=== PATIENT | male | born 1935 | race Caucasian/White ===

== ENCOUNTER → 2017-09-27 09:29 | Outpatient (CLI) | payer MEDICARE, BC, SELFPAY ==
[2017-09-27 09:44] LABS: Microscopic, Urine URINE MICROSCOPIC (MICROSCOPIC)
[2017-09-27 09:57] LABS: Appearance,Urine CLEAR (Clear); Bilirubin,Urine Negative (Negative); Blood, Urine Negative (Negative); Color,Urine YELLOW (Yellow); Glucose,Urine (UA) Negative (Negative); Ketones,Urine Negative (Negative); Leukocyte Esterase,Urine Negative (Negative); Nitrate,Urine Negative (Negative); Protein,Urine Negative (Negative); Specific Gravity, Urine 1.015 (1.005-1.030)
[2017-09-27 10:00] LABS: Basophils % 0.4 % (0.1-2.0); Eosinophils # 0.2 K/mm3 (0.0-0.4); Eosinophils % 1.8 % (0.1-12.0); Hematocrit 40.4 % (42.0-52.0); Hemoglobin 13.8 g/dL (14.1-18.0); Lymphocytes # 2.8 K/mm3 (0.7-4.5); Lymphocytes % 34.1 K/mm3 (10-50); Mean Corpuscular Hemoglobin 31.9 pg (27.0-31.2); Mean Corpuscular Volume 93.6 fl (80-94); Mean Platelet Volume 9.1 fl (7.4-10.4); Monocytes # 0.6 K/mm3 (0.1-1.0); Monocytes % 7.5 % (1.7-9.3); Neutrophils # 4.6 K/mm3 (1.8-7.8); Neutrophils % 56.1 % (37.0-80.0); Platelet Count 140 K/mm3 (142-424); Red Blood Count 4.32 M/mm3 (4.60-6.20); Red Cell Distribution Width 14.3 % (11.5-17.5); White Blood Count 8.2 K/mm3 (4.8-10.8)
[2017-09-27 10:16] LABS: Bacteria,Urine Trace /lpf; Squamous Epithelial Cell,Urine Occasional #/hpf (0-5)
[2017-09-27 10:25] LABS: Creatinine,Urine Random 110 mg/dL (20-320); Total Protein,Urine Random 11.3 mg/dL (0.0-11.9)
[2017-09-27 11:37] LABS: Albumin Level 3.6 gm/dL (3.4-5.0); Blood Urea Nitrogen 21 mg/dL (7-18); Calcium 8.7 mg/dL (8.5-10.1); Carbon Dioxide 29 mmol/L (21.0-32.0); Chloride 108 mmol/L (98-107); Estimated Glomerular Filt Rate 42 ml/min (>60); GFR (African American) 50 ML/MIN (>60); Glucose 139 mg/dL (74-106); Phosphorous 3.3 mg/dL (2.4-4.9); Sodium 145 mmol/L (136-145)
== END ==
PROVIDERS: PCP Emergency Medicine; Visit Provider Internal Medicine Nephrology
DX: N18.3 Chronic kidney disease, stage 3 (moderate) (principal)
CPT/HCPCS: 36415; 80069; 81001; 82570; 84155; 85025

== ENCOUNTER → 2017-09-30 12:59 | Outpatient (POV) | payer MEDICARE, BC, SELFPAY | PROVIDERS: Family Provider Emergency Medicine; PCP Emergency Medicine; Visit Provider Internal Medicine Nephrology | DX: Z00.00 Encounter for general adult medical examination without abnormal findings (principal) ==

== ENCOUNTER → 2018-03-17 17:04 | Outpatient (REF) | payer MEDICARE, BC, SELFPAY | LOC: LAB 17:04 | PROVIDERS: Visit Provider Podiatrist | DX: B35.1 Tinea unguium (principal) | CPT/HCPCS: 87102; 87206; 87220 ==

== ENCOUNTER → 2018-04-19 14:58 | Outpatient (CLI) | payer MEDICARE, BC, SELFPAY ==
[2018-04-19 15:23] LABS: Basophils % 0.3 % (0.1-2.0); Eosinophils # 0.2 K/mm3 (0.0-0.4); Eosinophils % 2.1 % (0.1-12.0); Hemoglobin 13.9 g/dL (14.1-18.0); Lymphocytes # 2.7 K/mm3 (0.7-4.5); Lymphocytes % 33.8 K/mm3 (10-50); Mean Corpuscular HGB Conc 34.7 g/dL (31.8-35.4); Mean Corpuscular Volume 95.2 fl (80-94); Mean Platelet Volume 8.8 fl (7.4-10.4); Monocytes # 0.4 K/mm3 (0.1-1.0); Monocytes % 5.5 % (1.7-9.3); Neutrophils # 4.7 K/mm3 (1.8-7.8); Neutrophils % 58.3 % (37.0-80.0); Platelet Count 169 K/mm3 (142-424); Red Blood Count 4.21 M/mm3 (4.60-6.20); Red Cell Distribution Width 13.6 % (11.5-17.5)
[2018-04-19 16:16] LABS: Alanine Aminotransferase 36 U/L (12-78); Albumin Level 3.8 gm/dL (3.4-5.0); Albumin/Globulin Ratio 1.2 (1.1-1.8); Alkaline Phosphatase 61 U/L (46-116); Anion Gap 11.1 mEq/L (5-15); Aspartate Amino Transferase 28 U/L (15-37); Bilirubin,Total 0.5 mg/dL (0.2-1.0); Blood Urea Nitrogen 24 mg/dL (7-18); Calcium 9.1 mg/dL (8.5-10.1); Carbon Dioxide 29 mmol/L (21.0-32.0); Chloride 105 mmol/L (98-107); Creatinine,Serum 1.77 mg/dL (0.70-1.30); Estimated Glomerular Filt Rate 37 ml/min (>60); GFR (African American) 45 ML/MIN (>60); Globulin 3.1 gm/dl (1.3-3.2); Glucose 187 mg/dL (74-106); Potassium 4.1 mmoL/L (3.5-5.1); Sodium 141 mmol/L (136-145); Total Protein,Serum 6.9 gm/dL (6.4-8.2)
== END ==
PROVIDERS: Visit Provider Internal Medicine
DX: C18.9 Malignant neoplasm of colon, unspecified (principal)
CPT/HCPCS: 36415; 80053; 85025

== ENCOUNTER → 2018-04-21 08:51 | Outpatient (CLI) | payer MEDICARE, BC, SELFPAY ==
--- NOTE | 2018-04-21 09:25 | CT_ITS ---
CT chest wo con HISTORY: Follow-up: Cancer ITS.REASON: COLON CA ORDERING PHYSICIAN: Clayton Dinh MD PATIENT AGE: 82 years COMPARISON: 04/15/2017 Technique: Axial images obtained with sagittal and coronal reformats. All CT scans at the facility use one or more dose reduction, viz: automated exposure control, ma/kV adjustment per patient size (including targeted exams where dose is matched to indication, i.e. head), or iterative reconstruction technique. 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 No mediastinal or hilar mass evident. Normal heart size without evidence of pericardial effusion. There is evidence of old granulomatous disease with chronic changes. No suspicious pulmonary nodules, infiltrates, or effusions. No bony destructive process. IMPRESSION: Stable CT appearance of the chest with no convincing evidence of metastatic disease.
--- NOTE | 2018-04-21 09:25 | CT_ITS ---
CT abdomen pelvis wo con CLINICAL INDICATION: Follow-up: Cancer ITS.REASON: COLON CA ORDERING PHYSICIAN: Clayton Dinh MD PATIENT AGE: 82 years COMPARISON: 04/15/2017 TECHNIQUE: Axial images obtained with sagittal and coronal reformats. All CT scans at the facility use one or more dose reduction, viz: automated exposure control, ma/kV adjustment per patient size (including targeted exams where dose is matched to indication, i.e. head), or iterative reconstruction technique. IV contrast was not given due to patient's renal status and due to the fact patient has only one kidney PROCEDURE: Oral Contrast: Redicat IV Contrast: None . FINDINGS: There remains a 1 cm isodensity in the hepatic dome centrally unchanged and may represent a hepatic cyst. There has been a prior cholecystectomy. Spleen and adrenal glands have an unremarkable appearance. The pancreas also appears unremarkable on this unenhanced exam. 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 The right renal bed is unremarkable. There are nonobstructing punctate calculi in the lower pole the left kidney with at least 2 stones present measuring 2 and 3 mm. No hydronephrosis. No ureteral calculi. There has been a prior right hemicolectomy. There is a nodular soft tissue density at the anastomosis with the large and small bowel in the right mid abdominal region. This may only represent a postsurgical finding habitus somewhat similar but less apparent appearance on 04/15/2017 and on older exam of 05/20/2015. This area measures approximately 3 cm previously measuring 2 cm. No pelvic mass or abnormal fluid collection or focal inflammatory change of the pelvis. No bony destructive process. There are degenerative changes in the lumbar spine. IMPRESSION: 1. No convincing evidence of metastatic disease. 2. Slight increase in soft tissue prominence in the right mid abdominal region just posterior to the small and large bowel anastomosis. This may only be due to postsurgical changes or even scarring. Recurrent neoplasm at this site cannot totally be excluded. Consider 6 month follow-up to confirm short-term stability as this area appears slightly more prominent compared to multiple previous exam
== END ==
PROVIDERS: Family Provider Emergency Medicine; PCP Emergency Medicine; Visit Provider Internal Medicine
DX: Z03.89 Encounter for observation for other suspected diseases and conditions ruled out (principal); C18.9 Malignant neoplasm of colon, unspecified
CPT/HCPCS: 71250; 74176

== ENCOUNTER → 2018-10-28 14:31 | Outpatient (CLI) | payer MEDICARE, BC, SELFPAY ==
[2018-10-28 14:45] LABS: Microscopic, Urine URINE MICROSCOPIC (MICROSCOPIC)
[2018-10-28 15:12] LABS: Appearance,Urine CLEAR (Clear); Bilirubin,Urine Negative (Negative); Blood, Urine Negative (Negative); Color,Urine YELLOW (Yellow); Glucose,Urine (UA) Negative (Negative); Ketones,Urine Negative (Negative); Leukocyte Esterase,Urine Negative (Negative); Nitrate,Urine Negative (Negative); Protein,Urine Negative (Negative); Urobilinogen,Urine 0.2 EU/dl (0.2)
[2018-10-28 15:38] LABS: Basophils % 0.6 % (0.1-2.0); Eosinophils # 0.2 K/mm3 (0.0-0.4); Eosinophils % 2.6 % (0.1-12.0); Hematocrit 40.2 % (42.0-52.0); Hemoglobin 14.1 g/dL (14.1-18.0); Lymphocytes # 2.6 K/mm3 (0.7-4.5); Lymphocytes % 35.4 % (10-50); Mean Corpuscular HGB Conc 35.1 g/dL (31.8-35.4); Mean Corpuscular Hemoglobin 32.5 pg (27.0-31.2); Mean Corpuscular Volume 92.7 fl (80-94); Mean Platelet Volume 8.6 fl (7.4-10.4); Monocytes # 0.5 K/mm3 (0.1-1.0); Monocytes % 6.6 % (1.7-9.3); Neutrophils # 4.1 K/mm3 (1.8-7.8); Neutrophils % 54.8 % (37.0-80.0); Platelet Count 146 K/mm3 (142-424); Red Blood Count 4.33 M/mm3 (4.60-6.20); Red Cell Distribution Width 13.9 % (11.5-17.5); White Blood Count 7.4 K/mm3 (4.8-10.8)
[2018-10-28 15:50] LABS: Creatinine,Urine Random 27 mg/dL (20-320)
[2018-10-28 15:56] LABS: Total Protein,Urine Random 3.1 mg/dL (0.0-11.9)
[2018-10-28 16:12] LABS: Albumin Level 3.8 gm/dL (3.4-5.0); Anion Gap 12.9 mEq/L (5-15); Blood Urea Nitrogen 22 mg/dL (7-18); Calcium 9.4 mg/dL (8.5-10.1); Carbon Dioxide 27 mmol/L (21.0-32.0); Chloride 103 mmol/L (98-107); Estimated Glomerular Filt Rate 45 ml/min (>60); GFR (African American) 54 ML/MIN (>60); Glucose 138 mg/dL (74-106); Phosphorous 3.7 mg/dL (2.4-4.9); Potassium 3.9 mmoL/L (3.5-5.1); Sodium 139 mmol/L (136-145); Uric Acid 4.4 mg/dL (2.6-7.2)
[2018-10-28 16:26] LABS: Squamous Epithelial Cell,Urine Occasional #/hpf (0-5)
[2018-10-31 13:25] LABS: Calcium, Ionized 5.4 mg/dL (4.5-5.6); Microalbumin, Urine 7.2 ug/mL (Not Estab.)
[2018-10-31 13:26] LABS: Vitamin D 25 Hydroxy 47.6 ng/mL (30.0-100.0)
[2018-10-31 16:45] LABS: Parathyroid Hormone Intact 20 pg/mL (15-65)
== END ==
PROVIDERS: Visit Provider Internal Medicine Nephrology
DX: N18.3 Chronic kidney disease, stage 3 (moderate) (principal)
CPT/HCPCS: 36415; 80069; 81001; 82043; 82330; 82570; 82652; 83970; 84155; 84550; 85025

== ENCOUNTER → 2018-11-03 14:02 | Outpatient (POV) | payer MEDICARE, BC, SELFPAY | PROVIDERS: Visit Provider Internal Medicine Nephrology | DX: Z00.00 Encounter for general adult medical examination without abnormal findings (principal) ==

== ENCOUNTER → 2019-01-11 10:54 | Outpatient (CLI) | payer MEDICARE, BC, SELFPAY ==
--- NOTE | 2019-01-11 11:01 | XR_ITS ---
XR shoulder RT min 2V HISTORY: ITS.REASON: right shoulder pain ORDERING PHYSICIAN: Diogenes Og MD PATIENT AGE: 83 years Comparison: None FINDINGS: No fracture or dislocation. No lytic or blastic change. There is normal mineralization. There is minimal superior displacement of the distal clavicle and minimal periarticular calcification superiorly. Mild osteoarthritis is present at the glenohumeral joint. No fracture or dislocation. No significant subacromial stenosis. IMPRESSION: Mild osteoarthritis of the glenohumeral joint with minimal superior displacement of the distal clavicle which is age indeterminant
== END ==
PROVIDERS: PCP Emergency Medicine; Visit Provider Emergency Medicine
DX: M25.511 Pain in right shoulder (principal)
CPT/HCPCS: 73030

== ENCOUNTER → 2019-01-13 10:02 | Outpatient (CLI) | payer MEDICARE, BC, SELFPAY ==
--- NOTE | 2019-01-13 10:06 | MR_ITS ---
MR shoulder RT wo con COMPARISON: 01/11/2019 HISTORY: Right shoulder pain with limited range of motion ORDERING PHYSICIAN: Diogenes Og MD PATIENT AGE: 83 years TECHNIQUE: Multiplanar multiecho sequences are performed without contrast. FINDINGS: There is acromioclavicular arthropathy with mild hypertrophic change of the AC joint. There is thickening of the supraspinatus tendon with increased T2 signal distally consistent with tendinopathy/tendinosis. There is irregularity of the undersurface of the supraspinatus tendon with discontinuity of the deep fibers consistent with a partial tear. A full-thickness or complete tear is not identified. The infraspinatus tendon shows mild thickening distally consistent with tendinopathy/tendinosis. The subscapularis and teres minor tendons are unremarkable. No obvious labral tear. The bicipital tendon is in place. There is fluid around the bicipital tendon sheath. There is increased T2 signal in the subcutaneous tissues along the anterior aspect of the shoulder which could be due to posttraumatic inflammatory or infectious changes. Small amount fluid is present in the subcoracoid region. IMPRESSION: 1. Tendinopathy/tendinosis of the supraspinatus and infraspinatus tendons with partial tear along the undersurface of the supraspinatus tendon. A complete tear with muscle or tendinous retraction is not identified 2. Tenosynovitis of the bicipital tendon sheath 3. Subcoracoid bursitis. 4. Soft tissue edema along the anterior aspect of the shoulder
== END ==
PROVIDERS: PCP Emergency Medicine; Visit Provider Emergency Medicine
DX: M25.511 Pain in right shoulder (principal)
CPT/HCPCS: 73221

== ENCOUNTER → 2019-01-18 14:30 | Outpatient (CLI) | payer MEDICARE, BC, SELFPAY ==
[2019-01-18 14:49] LABS: Anion Gap 13.6 mEq/L (5-15); Blood Urea Nitrogen 24 mg/dL (7-18); Carbon Dioxide 25 mmol/L (21.0-32.0); Chloride 101 mmol/L (98-107); Creatinine,Serum 1.87 mg/dL (0.70-1.30); Estimated Glomerular Filt Rate 35 ml/min (>60); GFR (African American) 42 ML/MIN (>60); Glucose 93 mg/dL (74-106); Potassium 4.6 mmoL/L (3.5-5.1); Sodium 135 mmol/L (136-145)
--- NOTE | 2019-01-18 14:51 | MR_ITS ---
MR head/brain wo con HISTORY: Unable to move the right arm. History of colon cancer ITS.REASON: hemiparesis ORDERING PHYSICIAN: Nan Chowdhury MD PATIENT AGE: 83 years Comparison: None TECHNIQUE: Standard multiplanar multiecho sequences are performed without contrast. FINDINGS: No midline shift, mass effect, intracranial hemorrhage, or hydrocephalus is evident. No evidence of acute infarction. There is generalized atrophy with moderate periventricular and subcortical T2 white matter hyperintensities consistent with ischemic gliotic change from microvascular disease. No space occupying lesions are evident. No intra or extra-axial hemorrhage. The cerebellopontine angles, cerebellum, and brainstem are unremarkable. No large aneurysm. There is mild mucosal thickening of the maxillary sinus on the right and minimal fluid signal intensity in the mastoid sinuses. IMPRESSION: 1. No acute intracranial findings. 2. Atrophy with chronic periventricular ischemic gliotic change
== END ==
PROVIDERS: Visit Provider Orthopaedic Surgery
DX: G81.90 Hemiplegia, unspecified affecting unspecified side (principal)
CPT/HCPCS: 36415; 70551; 80048

== ENCOUNTER → 2019-01-19 10:44 | Outpatient (CLI) | payer MEDICARE, BC, SELFPAY ==
--- NOTE | 2019-01-19 10:46 | MR_ITS ---
MR chest wo/w con CLINICAL INDICATION: Right upper extremity weakness with limited range of motion, history of colon cancer and renal cancer ITS.REASON: right brachial plexus ORDERING PHYSICIAN: Nan Chowdhury MD PATIENT AGE: 83 years Comparison: None TECHNIQUE: Routine multiplanar multiecho sequences are performed without and with contrast of the upper chest with attention to the brachial plexus FINDINGS: There is mild degree of motion artifact which does obscure fine detail. No enhancing masses are apparent. No abnormal fluid collections. No supraclavicular or infraclavicular lesions apparent. No enhancing lesions evident. IMPRESSION: Unremarkable MRI of brachial plexus
--- NOTE | 2019-01-19 10:46 | MR_ITS ---
MR cervical spine wo/w con HISTORY: Right arm hemiparalysis/hemiparesis, inability to raise right arm and flex right elbow ITS.REASON: neck/shoulder pain ORDERING PHYSICIAN: Nan Chowdhury MD PATIENT AGE: 83 years Comparison: None TECHNIQUE: Standard multiplanar multiecho sequences are performed without and with gadolinium enhancement contrast. 3-D MIP and myelographic images are also rendered and reviewed FINDINGS: There is normal alignment. The craniocervical junction has an unremarkable appearance. C2-C3: Mild right-sided foraminal narrowing from uncovertebral hypertrophy. C3-C4: Mild disc disease with moderate bilateral foraminal narrowing from uncovertebral hypertrophy. There is a small disc osteophyte complex in the right uncovertebral region with severe right-sided foraminal narrowing. The canal is narrowed at this level at 10 mm with minimal bulging of the disc without cord flattening. C4-C5: Degenerative disc disease with bulging disc along with uncovertebral and facet hypertrophy. There is canal stenosis at 9 mm. There is severe left lateral recess narrowing and moderate to severe bilateral foraminal narrowing. The bulging disc abuts the anterior aspect of the cord without contour deformity. C5-C6: Degenerative disc disease with bulging disc along facet and ligamentum flavum hypertrophy with moderate bilateral foraminal narrowing. C6-C7: Degenerative disc disease with bulging disc slightly eccentric toward the left. The canal is narrowed at 10 mm. C7-T1: Minimal anterolisthesis of C7 of approximately 3 mm. There is degenerative disc disease in the upper thoracic spine. No obstructive lesions. No abnormal enhancement. No evidence of metastatic disease. IMPRESSION: 1. No evidence of metastatic disease. 2. Multilevel cervical spondylosis with degenerative disc disease, bulging disc, facet and uncovertebral hypertrophy with lateral recess and foraminal narrowing and canal stenosis. Please see above for detailed description at each level. No disc herniation
== END ==
PROVIDERS: PCP Emergency Medicine; Visit Provider Orthopaedic Surgery
DX: G81.90 Hemiplegia, unspecified affecting unspecified side (principal); M54.2 Cervicalgia
CPT/HCPCS: 71552; 72156; 76376; A9576

== ENCOUNTER → 2019-03-22 12:36 | Outpatient (CLI) | payer MEDICARE, BC, SELFPAY ==
[2019-03-22 14:54] LABS: Free T4 (Free Thyroxine) 0.98 ng/dl (0.76-1.46); Thyroid Stimulating Hormone 2.28 uIU/ml (0.358-3.740)
[2019-03-22 15:01] LABS: Hemoglobin A1C 6.7 % (0.0-7.0)
[2019-03-22 15:11] LABS: Erythrocyte Sedimentation Rate 28 mm/hr (0-20)
[2019-03-23 08:22] LABS: Folate >20.0 ng/mL (>3.0); Vitamin B12 418 pg/mL (232-1245)
[2019-03-23 08:23] LABS: RA Latex Turbid. <10.0 IU/mL (0.0-13.9)
[2019-03-23 10:10] LABS: Sjogren's Anti-SS-A <0.2 AI (0.0-0.9)
[2019-03-23 14:07] LABS: Sjogren's Anti-SS-B <0.2 AI (0.0-0.9)
[2019-03-23 15:09] LABS: Albumin 3.7 g/dL (2.9-4.4); Alpha-1-Globulin 0.2 g/dL (0.0-0.4); Alpha-2-Globulin 0.7 g/dL (0.4-1.0); Protein, Total 6.5 g/dL (6.0-8.5)
[2019-03-24 15:01] LABS: Treponema pallidum Ab (FTA-ABS Non Reactive (Non Reactive)
[2019-03-24 15:02] LABS: Angiotensin Converting Enzyme <15 U/L (14-82); Antinuclear Antibodies, IFA Positive (.)
[2019-03-31 18:12] LABS: Miscellaneous Test SEE BELOW:
== END ==
PROVIDERS: Visit Provider Psychiatry & Neurology Neurology
DX: Z79.899 Other long term (current) drug therapy (principal); G60.3 Idiopathic progressive neuropathy
CPT/HCPCS: 36415; 82164; 82607; 82746; 83036; 84155; 84165; 84439; 84443; 85651; 86038; 86235; 86334; 86431; 86618; 86780

== ENCOUNTER → 2019-07-19 11:57 | Outpatient (CLI) | payer MEDICARE, BC, SELFPAY | PROVIDERS: Visit Provider Psychiatry & Neurology Neurology | DX: G60.3 Idiopathic progressive neuropathy (principal) | CPT/HCPCS: 36415 ==

== ENCOUNTER → 2019-07-20 13:42 | Outpatient (CLI) | payer MEDICARE, BC, SELFPAY ==
[2019-07-20 14:03] LABS: Basophils % 0.4 % (0.1-2.0); Eosinophils # 0.1 K/mm3 (0.0-0.4); Eosinophils % 1.9 % (0.1-12.0); Hemoglobin 12.5 g/dL (14.1-18.0); Lymphocytes # 2.1 K/mm3 (0.7-4.5); Lymphocytes % 30.3 % (10-50); Mean Corpuscular HGB Conc 32.1 g/dL (31.8-35.4); Mean Corpuscular Hemoglobin 31.4 pg (27.0-31.2); Mean Corpuscular Volume 97.9 fl (80-94); Mean Platelet Volume 9.9 fl (7.4-10.4); Monocytes # 0.6 K/mm3 (0.1-1.0); Monocytes % 8.4 % (1.7-9.3); Neutrophils # 4.1 K/mm3 (1.8-7.8); Platelet Count 192 K/mm3 (142-424); Red Blood Count 3.98 M/mm3 (4.60-6.20); Red Cell Distribution Width 14.4 % (11.5-17.5)
[2019-07-20 14:35] LABS: Alanine Aminotransferase 25 U/L (12-78); Albumin Level 3.7 gm/dL (3.4-5.0); Albumin/Globulin Ratio 1.1 (1.1-1.8); Alkaline Phosphatase 50 U/L (46-116); Anion Gap 12.5 mEq/L (5-15); Aspartate Amino Transferase 27 U/L (15-37); Bilirubin,Total 0.6 mg/dL (0.2-1.0); Blood Urea Nitrogen 20 mg/dL (7-18); Calcium 8.8 mg/dL (8.5-10.1); Carbon Dioxide 27 mmol/L (21.0-32.0); Chloride 102 mmol/L (98-107); Chol/HDL Ratio 2.9 (1-3.5); Cholesterol 80 mg/dL (140-200); Creatinine,Serum 1.38 mg/dL (0.70-1.30); Estimated Glomerular Filt Rate 49 ml/min (>60); Free T4 (Free Thyroxine) 1.04 ng/dl (0.76-1.46); GFR (African American) 60 ML/MIN (>60); Globulin 3.4 gm/dl (1.3-3.2); Glucose 155 mg/dL (74-106); HDL Cholesterol 28 mg/dL (27-67); LDL Cholesterol 26 mg/dL (0-130); Potassium 4.5 mmoL/L (3.5-5.1); Sodium 137 mmol/L (136-145); Total Protein,Serum 7.1 gm/dL (6.4-8.2); Triglycerides 130 mg/dL (30-200); VLDL Cholesterol 26 mg/dL (0-40)
[2019-07-21 09:18] LABS: Vitamin D 25 Hydroxy 48.8 ng/mL (30.0-100.0)
[2019-07-21 19:02] LABS: Hemoglobin A1C 7.1 % (0.0-7.0)
== END ==
PROVIDERS: Visit Provider Nurse Practitioner Family
DX: E11.9 Type 2 diabetes mellitus without complications (principal); E78.5 Hyperlipidemia, unspecified; Z79.4 Long term (current) use of insulin
CPT/HCPCS: 80053; 80061; 82652; 83036; 84439; 84443; 85025

== ENCOUNTER 2019-08-11 15:49 | Inpatient (IN) ==
--- NOTE | 2019-08-11 16:11 | Emergency Department Note ---
ED Disposition Condition on Discharge: Fair Time of Disposition: 19:56 - Critical Care Critical Care Time: No <Sergio Palmer - Last Filed: 08/11/19 19:50> <Diogenes Og - Last Filed: 08/11/19 22:21> Clinical Impression: Partial small bowel obstruction, SBO (small bowel obstruction), Renal insufficiency, Diabetes 1.5, managed as type 2, Abdominal lymphadenopathy Abdominal pain Qualifiers: Abdominal location: lower abdomen, unspecified Qualified Code(s): R10.30 - Lower abdominal pain, unspecified Disposition: Admitted As Inpatient Additional Instructions: Endorsed to Dr. Og at end of shift pending results of CT abdomen pelvis with oral and IV contrast Referrals: Diogenes Og MD [Primary Care Provider] - Attestation: On 08/11/19, the high probability of a clinically significant, sudden or life threatening deterioration of the following system(s) required my full and direct attention, intervention and personal management. The time I documented below is in addition to time spent performing reported procedures but includes the following listed in this critical care notation. Medical Decision Making - Medical Records Medical records reviewed: Yes: I reviewed the patient's medical records. - Rosas Inquiry Pt receiving controlled substance: Yes Rosas was queried for this patient: Yes (No scheduled drugs on report) Reference #:: [id number] Risks and benefits of using a controlled substance: were not discussed with pt by me - Lab Data Lab results reviewed: Yes: I reviewed the patient's lab results. Result diagrams: 08/11/19 16:32 08/11/19 16:32 - Radiology Data #1 Image(s): Abdomen Image Reviewed: Yes I reviewed the patient's radiology results, Yes I reviewed the patient's radiology image, Yes I have reviewed radiologist's interpretation - CT Data CT Scan: Abdomen, Pelvis Time Received: 19:[address] Reviewed: Yes: I have viewed the radiologist's interpretation <Sergio Palmer - Last Filed: 08/11/19 19:50> - Lab Data Result diagrams: 08/11/19 16:32 08/11/19 16:32 - CT Data Preliminary Findings: Abnormal (sbo/enlaarged lymph nodes ) - Physician Consults Physician Consulted: blanca Reason -: Pt condition <Diogenes Og - Last Filed: 08/11/19 22:21> Vital Signs: 08/11/19 15:56 08/11/19 18:38 08/11/19 21:19 Temperature 98.1 F Temperature Source Oral Pulse Rate [Left Radial] 66 60 58 L Respiratory Rate 16 20 Blood Pressure [Right Arm] 155/113 H 153/70 H 162/66 H Blood Pressure Mean [Right Arm] 127 97 98 Blood Pressure Source [Right Arm] Automatic Cuff Blood Pressure Position [Right Arm] Sitting Sitting 02 Sat by Pulse Oximetry 98 95 96 Oxygen Delivery Method Room Air Room Air - Lab Data Lab Results 08/11/19 16:32: WBC 6.2, RBC 3.97 L, Hgb 12.2 L, Hct 36.8 L, MCV 92.7, MCH 30.9, MCHC 33.3, RDW 13.9, Plt Count 173, MPV 9.6, Neut % (Auto) 51.4, Lymph % (Auto) 38.9, Jewell % (Auto) 8.7, Eos % (Auto) 0.7, Baso % (Auto) 0.3, Neut # (Auto) 3.2, Lymph # (Auto) 2.4, Jewell # (Auto) 0.5, Eos # (Auto) 0.0, Baso # (Auto) 0.0 08/11/19 16:32: Sodium 136, Potassium 4.2, Chloride 102, Carbon Dioxide 24, Anion Gap 14.2, BUN 24 H, Creatinine 1.53 H, Estimated Creat Clear 61, Estimated GFR 44 L, Est GFR ( Amer) 53 L, Glucose 74, Calcium 8.4 L, Total Bilirubin 0.5, AST 39 H, ALT 27, Alkaline Phosphatase 39 L, Total Protein 7.8, Albumin 2.8 L, Globulin 5.0 H, Albumin/Globulin Ratio 0.6 L, Amylase 32 08/11/19 16:32: Lipase 91 08/11/19 16:32: ESR 93 H 08/11/19 16:32: C-Reactive Protein 2.3 H 08/11/19 18:35: Urine Color Yellow, Urine Appearance Clear, Urine pH 6.0, Ur Specific Alexander 1.020, Urine Protein Negative, Urine Glucose (UA) Negative, Urine Ketones Negative, Urine Blood Negative, Urine Nitrate Negative, Urine Bilirubin Negative, Urine Urobilinogen 0.2, Ur Leukocyte Esterase Negative, Ur Squamous Epith Cells Occasional, Amorphous Sediment Trace Orders (Tests/Meds): ED MEDICATIONS Generic Name Dose Route Start Last Admin Trade Name Freq PRN Reason Stop Dose Admin Sodium Chloride 1,000 mls @ 999 mls/hr 08/11/19 21:15 08/11/19 21:10 Sod Chlor 0.9% 1000ml Bag IV 08/11/19 22:15 999 mls/hr .Q1H1M JHON Administration Discontinued Medications Generic Name Dose Route Start Last Admin Trade Name Freq PRN Reason Stop Dose Admin Diatrizoate Meglum/Diatrizoate Sod 30 ml 08/11/19 19:03 08/11/19 19:09 Gastrografin 66%-10% 30ml PO 08/11/19 19:04 30 ml ONCE ONE Administration Morphine Sulfate 2 mg 08/11/19 19:08 08/11/19 19:24 Morphine 4mg/Ml Syringe IV 08/11/19 19:09 2 mg ONCE ONE Administration Ondansetron HCl 4 mg 08/11/19 19:08 08/11/19 19:24 Zofran 4mg/2ml Vial IV 08/11/19 19:09 4 mg ONCE ONE Administration ORDERS Category Date Time Status CT abdomen pelvis w con Stat Cat Scan 08/11/19 18:22 Taken Diarrhea 23 Panel, PCR Stat Lab 08/11/19 16:11 Ordered - Radiology Data #1 IMPRESSION: Suspect partial small bowel obstruction. This may be confirmed with CT abdomen and pelvis with IV and oral contrast Small right pleural effusion (Sergio Palmer) - CT Data Findings Narrative: Results will be reviewed by Dr. Og (Sergio Palmer) Abdominal Pain HPI - General Mode of Arrival: Ambulatory Source of Information: Patient, Spouse - History of Present Illness MD complaint: abdominal pain Onset (ago): week(s) Consistency: intermittent Location: suprapubic Severity: moderate <Sergio Palmer - Last Filed: 08/11/19 19:50> - General Limitations: No Limitations - History of Present Illness Quality: cramping Radiation: epigastric Associated symptoms: denies other symptoms <Diogenes Og - Last Filed: 08/11/19 22:21> - General Stated Complaint: Abdominal Pain Time Seen by Provider: 08/11/19 16:00 - History of Present Illness HPI narrative: Patient is an 84-year-old white male who comes in with complaints of abdominal pain vomiting and diarrhea this been going on for the past 3 weeks since he had a flu shot at Dr. Og's office he says that his stools have been black but today his stools have been cream-colored (Sergio Palmer) - Related Data Home Medications Medication Instructions Recorded Confirmed esomeprazole magnesium 40 mg 40 mg PO DAILY cap 10/25/17 08/11/19 capsule,delayed release hydrochlorothiazide 25 mg tablet 25 mg PO ONCE 10/25/17 08/11/19 meloxicam 15 mg tablet 15 mg PO DAILY tab 10/25/17 08/11/19 aspirin 81 mg tablet,delayed 81 mg PO ONCE 03/17/18 08/11/19 release cholecalciferol (vitamin D3) 3,000 1,000 unit PO ONCE tab 03/17/18 08/11/19 unit tablet insulin aspar prot-insulin aspart 30 unit SQ BID ml 01/11/19 08/11/19 100 unit/mL (70-30) subcutaneous pen vit B6 25 mg-met.hydrofolate 3.75 1 cap PO DAILY cap 07/20/19 08/11/19 mg-mecobalamin 1mg-ALA 300mg capsule Amlodipine Besylate [Amlodipine 10 mg PO DAILY 08/11/19 08/11/19 10mg Tab] Atorvastatin Calcium [Atorvastatin 40 mg PO DAILY 08/11/19 08/11/19 40mg Tab] Desloratadine 5 mg PO DAILY 08/11/19 08/11/19 Fenofibrate Nanocrystallized 145 mg PO DAILY 08/11/19 08/11/19 [Fenofibrate] Furosemide [Furosemide 20mg Tab] 20 mg PO DAILY 08/11/19 08/11/19 Insulin NPH Hum/Reg Insulin Hm See Rx Instructions .ROUTE .COMPLEX 08/11/19 08/11/19 [Humulin 70/30 Kwikpen] Metoprolol Succinate See Rx Instructions .ROUTE .COMPLEX 08/11/19 08/11/19 Pen Needle, Diabetic [Easy Touch 1 units .ROUTE .MEDSUPPLY 08/11/19 08/11/19 Pen Needle] lisinopriL [Lisinopril 20mg Tab] See Rx Instructions .ROUTE .COMPLEX 08/11/19 08/11/19 Allergies Allergy/AdvReac Type Severity Reaction Status Date / Time No Known Allergies Allergy Verified 08/11/19 15:12 [facility] History I have reviewed the patient's past medical history: Yes Medical History: Reports:: Cancer, Diabetes Mellitus Type 2, Hyperlipidemia, Hypertension, Myocardial Infarction, Renal Insufficiency Other Medical History: Reports: Arthritis, Other (He has had 2 operations for colon cancer one kidney removed for cancer) Other Surgeries: Yes: Appendectomy, Cancer Surgery, Cardiac Surgery, Colon Resection Amputation: No Fractures: No - Social History Smoking Status: Never smoker Alcohol Intake: never Alcohol Intake Frequency:: other Substance Use Type: denies use Occupational Status: retired Housing: house Household Members: spouse Family Hx:: No significant family history <Sergio Palmer - Last Filed: 08/11/19 19:50> - Hepatitis A Screen Attestation statement:: This patient has been screened for Hepatitis A risk factors. ROS Obtained: Yes All systems reviewed & no additional complaints, Yes Systems reviewed as appropriate & no additional complaints - Constitutional Constitutional: Reports system reviewed and no additional complaints, except as docu, Reports as per HPI - Gastrointestinal Gastrointestingal: Reports: system reviewed and no additional complaints, except as docu, as per HPI, abdominal pain, bloating, cramping, diarrhea, vomiting <Sergio Palmer - Last Filed: 08/11/19 19:50> - Eyes Eyes: Denies change in vision - ENT Ears, Nose, Mouth, and Throat: Denies throat swelling - Cardiovascular Cardiovascular: Denies chest pain - Respiratory Respiratory: No cough - Genitourinary Male Genitourinary: Denies hematuria - Musculoskeletal Musculoskeletal: Denies joint pain, Denies joint swelling - Integumentary/Breasts Skin/Breast: Denies rash - Neurologic Neurologic: Denies focal weakness, Denies seizure-like activity <Diogenes Og - Last Filed: 08/11/19 22:21> Physical Exam - General General appearance: alert, in no apparent distress - Head Head exam: atraumatic - Eye Eye exam: Present: normal appearance - ENT ENT exam: Present: normal exam - Neck Neck exam: Present: normal inspection - Chest Chest inspection: Present: normal inspection - Respiratory Respiratory exam: Present: normal lung sounds bilaterally, respiratory distress - Cardiovascular Cardiovascular exam: Present: regular rate - Abdominal Exam Abdominal exam: Present: soft, tenderness (In the suprapubic area but he has good bowel sounds and and mild abdominal distention) - Extremities Exam Extremities exam: Present: normal inspection - Neurological Exam Neurological exam: Present: alert, oriented X3 - Psychiatric Psychiatric exam: Present: normal affect, normal mood <Sergio Palmer - Last Filed: 08/11/19 19:50> - Abdominal Exam Abdominal exam: Present: distention, diminished bowel sounds Abdominal tenderness: Present: epigastrium, moderate <Diogenes Og - Last Filed: 08/11/19 22:21>
[2019-08-11 16:40] LABS: Basophils % 0.3 % (0.1-2.0); Eosinophils % 0.7 % (0.1-12.0); Hematocrit 36.8 % (42.0-52.0); Hemoglobin 12.2 g/dL (14.1-18.0); Lymphocytes # 2.4 K/mm3 (0.7-4.5); Lymphocytes % 38.9 % (10-50); Mean Corpuscular HGB Conc 33.3 g/dL (31.8-35.4); Mean Corpuscular Volume 92.7 fl (80-94); Mean Platelet Volume 9.6 fl (7.4-10.4); Monocytes # 0.5 K/mm3 (0.1-1.0); Monocytes % 8.7 % (1.7-9.3); Neutrophils # 3.2 K/mm3 (1.8-7.8); Neutrophils % 51.4 % (37.0-80.0); Platelet Count 173 K/mm3 (142-424); Red Blood Count 3.97 M/mm3 (4.60-6.20); Red Cell Distribution Width 13.9 % (11.5-17.5); White Blood Count 6.2 K/mm3 (4.8-10.8)
[2019-08-11 16:57] LABS: Albumin Level 2.8 gm/dL (3.4-5.0); Albumin/Globulin Ratio 0.6 (1.1-1.8); Anion Gap 14.2 mEq/L (5-15); Bilirubin,Total 0.5 mg/dL (0.2-1.0); Calcium 8.4 mg/dL (8.5-10.1); Total Protein,Serum 7.8 gm/dL (6.4-8.2)
[2019-08-11 19:46] LABS: Microscopic, Urine URINE MICROSCOPIC (MICROSCOPIC)
[2019-08-11 19:49] LABS: Appearance,Urine CLEAR (Clear); Bilirubin,Urine Negative (Negative); Blood, Urine Negative (Negative); Color,Urine YELLOW (Yellow); Glucose,Urine (UA) Negative (Negative); Ketones,Urine Negative (Negative); Leukocyte Esterase,Urine Negative (Negative); Protein,Urine Negative (Negative); Urobilinogen,Urine 0.2 EU/dl (0.2)
[2019-08-11 19:53] LABS: Amorphous Sediment,Urine Trace /lpf; Squamous Epithelial Cell,Urine Occasional #/hpf (0-5)
[2019-08-12 06:29] LABS: Anion Gap 14.6 mEq/L (5-15); Calcium 7.9 mg/dL (8.5-10.1)
[2019-08-12 07:14] LABS: Basophils % 0.5 % (0.1-2.0); Eosinophils % 0.9 % (0.1-12.0); Hematocrit 36.7 % (42.0-52.0); Hemoglobin 11.6 g/dL (14.1-18.0); Lymphocytes % 34.1 % (10-50); Mean Corpuscular HGB Conc 31.8 g/dL (31.8-35.4); Mean Corpuscular Volume 93.8 fl (80-94); Mean Platelet Volume 9.3 fl (7.4-10.4); Monocytes % 11.4 % (1.7-9.3); Neutrophils % 53.2 % (37.0-80.0); Platelet Count 152 K/mm3 (142-424); Red Blood Count 3.91 M/mm3 (4.60-6.20); Red Cell Distribution Width 14.9 % (11.5-17.5); White Blood Count 4.7 K/mm3 (4.8-10.8)
[2019-08-12 07:15] LABS: Lymphocytes # 1.6 K/mm3 (0.7-4.5); Monocytes # 0.5 K/mm3 (0.1-1.0); Neutrophils # 2.5 K/mm3 (1.8-7.8)
--- NOTE | 2019-08-12 07:38 | Consult Report ---
*Admission Date: 08/11/19 *Reason for consult:: Small bowel obstruction. *History of present illness: Mr. Gramajo is an 84-year-old male admitted to [facility] for complaints of nausea and emesis for approximately 48 hours. Initial evaluation included CT A/P; findings suggestive of small bowel obstruction with visible transition point. Admitted for bowel rest. Nasogastric tube placed. A pproximately 600 mLs evacuated. This morning, patient reports no further nausea or emesis since admission. Small amount of flatus and bowel movement noted. No fever or chills. Clinically improved. Past medical history is significant for colon cancer for which he has undergone colon resection. Patient reports that he has had 2 operations for colon cancer in the past; this is not verified due to the lack of records available. Review of CT imaging demonstrates staple line in the left colon consistent with left colectomy. Index operation over 5 years ago. No evident disease during the 5-year surveillance period. He has been followed by Dr. Fredo Dinh in the past. Required Xeloda. Review of Systems - Review of Systems Review of systems:: pertinent systems reviewed and negative unless documented below - Constitutional Reports fatigue - *Gastrointestinal Reports abdominal pain, Reports bloating, Reports nausea - *Neurologic Denies localized weakness, Denies seizure-like activity [facility] History Medical History: Reports:: Cancer (colon), Diabetes Mellitus Type 2, Hyperlipidemia, Hypertension, Myocardial Infarction, Renal Insufficiency *Have you ever received a pneumonia vaccine?: Yes *Have you received a flu vaccine this season?: Yes Other Medical History: Reports: Arthritis, Chemotherapy, Radiation Therapy, Other (He has had 2 operations for colon cancer one kidney removed for cancer) Other Surgeries: Yes: Appendectomy, Cancer Surgery, Cardiac Surgery, Colon Resection Amputation: No Fractures: No - *Social History Educational Level: Attended Grade School Smoking Status: Never smoker Alcohol Intake: never Alcohol Intake Frequency:: other Substance Use Type: denies use *Occupational Status:: retired Housing: house Household Members: spouse *Travel in the last 8 weeks: None Family Hx:: No significant family history, Heart Attack, Hypertension Meds Home Medications Medication Instructions Recorded Confirmed Type aspirin 81 mg tablet,delayed 81 mg PO DAILY 03/17/18 08/12/19 History release Amlodipine Besylate [Amlodipine 10 mg PO HS 08/11/19 08/12/19 History 10mg Tab] Atorvastatin Calcium [Atorvastatin 40 mg PO HS 08/11/19 08/12/19 History 40mg Tab] Desloratadine 5 mg PO DAILY 08/11/19 08/12/19 History Fenofibrate Nanocrystallized 145 mg PO HS 08/11/19 08/12/19 History [Fenofibrate] Furosemide [Furosemide 20mg Tab] 20 mg PO DAILY 08/11/19 08/12/19 History Insulin NPH Hum/Reg Insulin Hm See Rx Instructions .ROUTE .COMPLEX 08/11/19 08/12/19 History [Humulin 70/30 Kwikpen] Metoprolol Succinate 100 mg PO DAILY 08/11/19 08/12/19 History Pen Needle, Diabetic [Easy Touch 1 units .ROUTE .MEDSUPPLY 08/11/19 08/11/19 History Pen Needle] lisinopriL [Lisinopril 20mg Tab] 20 mg PO BID 08/11/19 08/12/19 History Cholecalciferol (Vitamin D3) 1,000 unit PO DAILY 08/12/19 08/12/19 History [Vitamin D3 1,000 Unit Cap] Lansoprazole [Prevacid] 30 mg PO DAILY 08/12/19 08/12/19 History Multivitamin [Daily Multiple 1 each PO DAILY 08/12/19 08/12/19 History Vitamin] Vit B6/Me-Thfolate/Me-B12/Ala 1 each PO DAILY 08/12/19 08/12/19 History [Nufola Capsule] Allergies Allergy/AdvReac Type Severity Reaction Status Date / Time No Known Allergies Allergy Verified 08/11/19 15:12 Exam Vital signs and Labs for Last 24 Hours: Temp Pulse Resp BP Pulse Ox 97.7 F 70 18 154/79 H 94 L 08/12/19 04:00 08/12/19 04:00 08/12/19 04:00 08/12/19 04:00 08/12/19 04:00 Laboratory Results - last 24 hr 08/11/19 16:32: WBC 6.2, RBC 3.97 L, Hgb 12.2 L, Hct 36.8 L, MCV 92.7, MCH 30.9, MCHC 33.3, RDW 13.9, Plt Count 173, MPV 9.6, Neut % (Auto) 51.4, Lymph % (Auto) 38.9, [place] % (Auto) 8.7, Eos % (Auto) 0.7, Baso % (Auto) 0.3, Neut # (Auto) 3.2, Lymph # (Auto) 2.4, [place] # (Auto) 0.5, Eos # (Auto) 0.0, Baso # (Auto) 0.0 08/11/19 16:32: Sodium 136, Potassium 4.2, Chloride 102, Carbon Dioxide 24, Anion Gap 14.2, BUN 24 H, Creatinine 1.53 H, Estimated Creat Clear 61, Estimated GFR 44 L, Est GFR ( Amer) 53 L, Glucose 74, Calcium 8.4 L, Total Bilirubin 0.5, AST 39 H, ALT 27, Alkaline Phosphatase 39 L, Total Protein 7.8, Albumin 2.8 L, Globulin 5.0 H, Albumin/Globulin Ratio 0.6 L, Amylase 32 08/11/19 16:32: Lipase 91 08/11/19 16:32: ESR 93 H 08/11/19 16:32: C-Reactive Protein 2.3 H 08/11/19 18:35: Urine Color Yellow, Urine Appearance Clear, Urine pH 6.0, Ur Specific [place] 1.020, Urine Protein Negative, Urine Glucose (UA) Negative, Urine Ketones Negative, Urine Blood Negative, Urine Nitrate Negative, Urine Bilirubin Negative, Urine Urobilinogen 0.2, Ur Leukocyte Esterase Negative, Ur Squamous Epith Cells Occasional, Amorphous Sediment Trace 08/12/19 05:45: WBC 4.7 L, RBC 3.91 L, Hgb 11.6 L, Hct 36.7 L, MCV 93.8, MCH 29.8, MCHC 31.8, RDW 14.9, Plt Count 152, MPV 9.3, Neut % (Auto) 53.2, Lymph % (Auto) 34.1, [place] % (Auto) 11.4 H, Eos % (Auto) 0.9, Baso % (Auto) 0.5, Neut # (Auto) 2.5, Lymph # (Auto) 1.6, [place] # (Auto) 0.5, Eos # (Auto) 0.0, Baso # (Auto) 0.0 08/12/19 05:45: Sodium 139, Potassium 4.6, Chloride 104, Carbon Dioxide 25, Anion Gap 14.6, BUN 21 H, Creatinine 1.33 H, Estimated Creat Clear 65, Estimated GFR 51 L, Est GFR ( Amer) 62, Glucose 69 L, Calcium 7.9 L, Magnesium 1.8 08/12/19 06:05: POC Glucose 78 I & O for Last 24 hours: Intake & Output 08/09/19 08/10/19 08/11/19 08/12/19 11:59 11:59 11:59 11:59 Intake Total 1540 / 1540 Output Total 600 / 600 Balance 940 / 940 Weight 109.061 kg - Constitutional no acute distress - *Routine Abdominal Exam Comments: Soft. Mildly distended. Fullness over right upper quadrant. Tender with deep palpation right upper quadrant. Results - Labs 08/12/19 05:45 08/12/19 05:45 Laboratory Results - last 24 hr 08/11/19 16:32: WBC 6.2, RBC 3.97 L, Hgb 12.2 L, Hct 36.8 L, MCV 92.7, MCH 30.9, MCHC 33.3, RDW 13.9, Plt Count 173, MPV 9.6, Neut % (Auto) 51.4, Lymph % (Auto) 38.9, [place] % (Auto) 8.7, Eos % (Auto) 0.7, Baso % (Auto) 0.3, Neut # (Auto) 3.2, Lymph # (Auto) 2.4, [place] # (Auto) 0.5, Eos # (Auto) 0.0, Baso # (Auto) 0.0 08/11/19 16:32: Sodium 136, Potassium 4.2, Chloride 102, Carbon Dioxide 24, Anion Gap 14.2, BUN 24 H, Creatinine 1.53 H, Estimated Creat Clear 61, Estimated GFR 44 L, Est GFR ( Amer) 53 L, Glucose 74, Calcium 8.4 L, Total Bilirubin 0.5, AST 39 H, ALT 27, Alkaline Phosphatase 39 L, Total Protein 7.8, Albumin 2.8 L, Globulin 5.0 H, Albumin/Globulin Ratio 0.6 L, Amylase 32 08/11/19 16:32: Lipase 91 08/11/19 16:32: ESR 93 H 08/11/19 16:32: C-Reactive Protein 2.3 H 08/11/19 18:35: Urine Color Yellow, Urine Appearance Clear, Urine pH 6.0, Ur Specific [place] 1.020, Urine Protein Negative, Urine Glucose (UA) Negative, Urine Ketones Negative, Urine Blood Negative, Urine Nitrate Negative, Urine Bilirubin Negative, Urine Urobilinogen 0.2, Ur Leukocyte Esterase Negative, Ur Squamous Epith Cells Occasional, Amorphous Sediment Trace 08/12/19 05:45: WBC 4.7 L, RBC 3.91 L, Hgb 11.6 L, Hct 36.7 L, MCV 93.8, MCH 29.8, MCHC 31.8, RDW 14.9, Plt Count 152, MPV 9.3, Neut % (Auto) 53.2, Lymph % (Auto) 34.1, [place] % (Auto) 11.4 H, Eos % (Auto) 0.9, Baso % (Auto) 0.5, Neut # (Auto) 2.5, Lymph # (Auto) 1.6, [place] # (Auto) 0.5, Eos # (Auto) 0.0, Baso # (Auto) 0.0 08/12/19 05:45: Sodium 139, Potassium 4.6, Chloride 104, Carbon Dioxide 25, Anion Gap 14.6, BUN 21 H, Creatinine 1.33 H, Estimated Creat Clear 65, Estimated GFR 51 L, Est GFR ( Amer) 62, Glucose 69 L, Calcium 7.9 L, Magnesium 1.8 08/12/19 06:05: POC Glucose 78 - Imaging Chest x-ray: report reviewed, image reviewed Abdominal x-ray: report reviewed, image reviewed CT scan - abdomen: report reviewed, image reviewed CT scan - pelvis: report reviewed, image reviewed Assessment and Plan (1) Abdominal pain Current visit: Yes Status: Acute Qualifiers: Abdominal location: lower abdomen, unspecified Qualified Code(s): R10.30 - Lower abdominal pain, unspecified Category: Medical Code(s): R10.9 - Unspecified abdominal pain (2) Partial small bowel obstruction Current visit: Yes Status: Acute Category: Medical Code(s): K56.600 - Partial intestinal obstruction, unspecified as to cause - Assessment and plan all Dx Assessment and Plan for all problems:: 1. Small bowel obstruction; partial. Remote history of colon cancer requiring colectomy and postoperative chemotherapy. Presents with nausea and emesis. CT imaging consistent with partial small bowel obstruction; transition point noted. Additional lymphadenopathy in the area of obstruction has been suspicious for r ecurrent malignancy, however, this appears to be more clinically consistent with adhesive bowel obstruction. Nasogastric tube is functioning. Evacuating air and liquid. Small amount of flatus noted today. Plan at this time is to continue bowel rest and IV fluids. Limited sips of clears as allowed. Continue nasogastric decompression. No operative intervention indicated at this time. Imaging has been reviewed and there is some degree of small bowel thickening in the area of obstruction. In consideration of this finding, eventual operative intervention is more likely. No significant laboratory evaluations. Continue current management.
--- NOTE | 2019-08-12 09:08 | History & Physical Report ---
*Admission Date: 08/11/19 *Chief complaint: abd pain *History of present illness: this wm with progressive abd pain over the last few days - pt was seen in the pcp office and sent to the ed where he was found to have sbo - pt was admitted with ivf and ng suction and surg consult [facility] History I have reviewed the patient's past medical history: Yes Medical History: Reports:: Cancer (colon), Diabetes Mellitus Type 2, Hyperlipidemia, Hypertension, Myocardial Infarction, Renal Insufficiency *Have you ever received a pneumonia vaccine?: Yes *Have you received a flu vaccine this season?: Yes Other Medical History: Reports: Arthritis, Chemotherapy, Radiation Therapy, Other (He has had 2 operations for colon cancer one kidney removed for cancer) Other Surgeries: Yes: Appendectomy, Cancer Surgery, Cardiac Surgery, Colon Resection Amputation: No Fractures: No - *Social History Educational Level: Attended Grade School Smoking Status: Never smoker Alcohol Intake: never Alcohol Intake Frequency:: other Substance Use Type: denies use *Occupational Status:: retired Housing: house Household Members: spouse *Travel in the last 8 weeks: None Family Hx:: No significant family history, Heart Attack, Hypertension Review of Systems - Review of Systems Review of systems:: pertinent systems reviewed and negative unless documented below - Constitutional Denies headache(s) - Eyes Denies change in vision - ENT Denies change in voice - *Cardiovascular Denies chest pain at rest - *Respiratory Denies cough - *Gastrointestinal Reports abdominal pain, Reports nausea, Reports vomiting - *Genitourinary Denies blood in urine - *Musculoskeletal Denies joint pain, Denies limited joint movement - Integumentary/Breasts Denies rash - *Neurologic Reports other (rt upper ext neuritis ), Denies localized weakness, Denies seizure-like activity - Psychiatric Denies anxiety Meds Home Medications Medication Instructions Recorded Confirmed Type aspirin 81 mg tablet,delayed 81 mg PO DAILY 03/17/18 08/12/19 History release Amlodipine Besylate [Amlodipine 10 mg PO HS 08/11/19 08/12/19 History 10mg Tab] Atorvastatin Calcium [Atorvastatin 40 mg PO HS 08/11/19 08/12/19 History 40mg Tab] Desloratadine 5 mg PO DAILY 08/11/19 08/12/19 History Fenofibrate Nanocrystallized 145 mg PO HS 08/11/19 08/12/19 History [Fenofibrate] Furosemide [Furosemide 20mg Tab] 20 mg PO DAILY 08/11/19 08/12/19 History Insulin NPH Hum/Reg Insulin Hm See Rx Instructions .ROUTE .COMPLEX 08/11/19 08/12/19 History [Humulin 70/30 Kwikpen] Metoprolol Succinate 100 mg PO DAILY 08/11/19 08/12/19 History Pen Needle, Diabetic [Easy Touch 1 units .ROUTE .MEDSUPPLY 08/11/19 08/11/19 History Pen Needle] lisinopriL [Lisinopril 20mg Tab] 20 mg PO BID 08/11/19 08/12/19 History Cholecalciferol (Vitamin D3) 1,000 unit PO DAILY 08/12/19 08/12/19 History [Vitamin D3 1,000 Unit Cap] Lansoprazole [Prevacid] 30 mg PO DAILY 08/12/19 08/12/19 History Multivitamin [Daily Multiple 1 each PO DAILY 08/12/19 08/12/19 History Vitamin] Vit B6/Me-Thfolate/Me-B12/Ala 1 each PO DAILY 08/12/19 08/12/19 History [Nufola Capsule] Allergies Allergy/AdvReac Type Severity Reaction Status Date / Time No Known Allergies Allergy Verified 08/11/19 15:12 Exam Vital signs and Labs for Last 24 Hours: Temp Pulse Resp BP Pulse Ox 98.1 F 64 19 155/58 H 93 L 08/12/19 08:00 08/12/19 08:00 08/12/19 08:00 08/12/19 08:00 08/12/19 08:00 Laboratory Results - last 24 hr 08/11/19 16:32: WBC 6.2, RBC 3.97 L, Hgb 12.2 L, Hct 36.8 L, MCV 92.7, MCH 30.9, MCHC 33.3, RDW 13.9, Plt Count 173, MPV 9.6, Neut % (Auto) 51.4, Lymph % (Auto) 38.9, [place] % (Auto) 8.7, Eos % (Auto) 0.7, Baso % (Auto) 0.3, Neut # (Auto) 3.2, Lymph # (Auto) 2.4, [place] # (Auto) 0.5, Eos # (Auto) 0.0, Baso # (Auto) 0.0 08/11/19 16:32: Sodium 136, Potassium 4.2, Chloride 102, Carbon Dioxide 24, Anion Gap 14.2, BUN 24 H, Creatinine 1.53 H, Estimated Creat Clear 61, Estimated GFR 44 L, Est GFR ( Amer) 53 L, Glucose 74, Calcium 8.4 L, Total Bilirubin 0.5, AST 39 H, ALT 27, Alkaline Phosphatase 39 L, Total Protein 7.8, Albumin 2.8 L, Globulin 5.0 H, Albumin/Globulin Ratio 0.6 L, Amylase 32 08/11/19 16:32: Lipase 91 08/11/19 16:32: ESR 93 H 08/11/19 16:32: C-Reactive Protein 2.3 H 08/11/19 18:35: Urine Color Yellow, Urine Appearance Clear, Urine pH 6.0, Ur Specific [place] 1.020, Urine Protein Negative, Urine Glucose (UA) Negative, Urine Ketones Negative, Urine Blood Negative, Urine Nitrate Negative, Urine Bilirubin Negative, Urine Urobilinogen 0.2, Ur Leukocyte Esterase Negative, Ur Squamous Epith Cells Occasional, Amorphous Sediment Trace 08/12/19 05:45: WBC 4.7 L, RBC 3.91 L, Hgb 11.6 L, Hct 36.7 L, MCV 93.8, MCH 29.8, MCHC 31.8, RDW 14.9, Plt Count 152, MPV 9.3, Neut % (Auto) 53.2, Lymph % (Auto) 34.1, [place] % (Auto) 11.4 H, Eos % (Auto) 0.9, Baso % (Auto) 0.5, Neut # (Auto) 2.5, Lymph # (Auto) 1.6, [place] # (Auto) 0.5, Eos # (Auto) 0.0, Baso # (Auto) 0.0 08/12/19 05:45: Sodium 139, Potassium 4.6, Chloride 104, Carbon Dioxide 25, Anion Gap 14.6, BUN 21 H, Creatinine 1.33 H, Estimated Creat Clear 65, Estimated GFR 51 L, Est GFR ( Amer) 62, Glucose 69 L, Calcium 7.9 L, Magnesium 1.8 08/12/19 06:05: POC Glucose 78 I & O for Last 24 hours: Intake & Output 08/09/19 08/10/19 08/11/19 08/12/19 11:59 11:59 11:59 11:59 Intake Total 1540 / 1540 Output Total 600 / 600 Balance 940 / 940 Weight 240 lb 7 oz - Constitutional no acute distress, obese - *Routine HEENT Exam Head: Present: normocephalic Eye: Present: EOMI, PERRL. Absent: conjunctival icterus ENT: Present: mucous membranes dry - *Routine Neck Exam Present: supple. Absent: JVD - *Routine Respiratory Exam Present: decreased breath sounds - *Routine Cardiovascular Exam Present: RRR, murmur, S4 - *Routine Abdominal Exam Present: soft, tenderness Comments: has ng tube - *Routine Extremities Exam Absent: calf tenderness - *Routine Skin Exam Present: intact - *Routine Neurological Exam Present: alert, oriented X3, CN II-XII intact - Routine Psychiatric Exam Present: normal affect Assessment and Plan (1) Abdominal pain Current visit: Yes Status: Acute Qualifiers: Abdominal location: lower abdomen, unspecified Qualified Code(s): R10.30 - Lower abdominal pain, unspecified Category: Medical Code(s): R10.9 - Unspecified abdominal pain (2) Partial small bowel obstruction Current visit: Yes Status: Acute Category: Medical Code(s): K56.600 - Partial intestinal obstruction, unspecified as to cause (3) Renal insufficiency Current visit: Yes Status: Acute Category: Medical Code(s): N28.9 - Disorder of kidney and ureter, unspecified (4) Abdominal lymphadenopathy Current visit: Yes Status: Acute Category: Medical Code(s): R59.0 - Localized enlarged lymph nodes (5) Diabetes 1.5, managed as type 2 Current visit: Yes Status: Acute Category: Medical Code(s): E13.9 - Other specified diabetes mellitus without complications (6) Anemia Current visit: Yes Status: Acute Qualifiers: Anemia type: unspecified type Qualified Code(s): D64.9 - Anemia, unspecified Category: Medical Code(s): D64.9 - Anemia, unspecified (7) Elevated erythrocyte sedimentation rate Current visit: Yes Status: Acute Category: Medical Code(s): R70.0 - Elevated erythrocyte sedimentation rate (8) Neuritis of upper extremity Current visit: Yes Status: Acute Category: Medical Code(s): M79.2 - Neuralgia and neuritis, unspecified
--- NOTE | 2019-08-12 12:02 | Pharmacy Consult Notes ---
[facility] Pharmacy VTE Monitoring - Patient Demographics Admission date: 08/12/19 Report Date: 08/12/19 Time: 12:02 Allergies/Adverse Reactions: Patient Allergies No Known Allergies Allergy (Verified 08/11/19 15:12) Height: 1.88 m Weight: 109.061 kg Patient Problems: Current Active Problems Abdominal pain (Acute) Partial small bowel obstruction (Acute) SBO (small bowel obstruction) (Acute) Renal insufficiency (Acute) Abdominal lymphadenopathy (Acute) Anemia (Acute) Elevated erythrocyte sedimentation rate (Acute) Neuritis of upper extremity (Acute) Diabetes 1.5, managed as type 2 (Acute) - VTE Risk Labs: VTE Related Lab Results Hgb 11.6 g/dL (14.1-18.0) L 08/12/19 05:45 Hct 36.7 % (42.0-52.0) L 08/12/19 05:45 Plt Count 152 K/mm3 (142-424) 08/12/19 05:45 BUN 21 mg/dL (7-18) H 08/12/19 05:45 Creatinine 1.33 mg/dL (0.70-1.30) H 08/12/19 05:45 Estimated Creat Clear 65 mL/min (50-200) 08/12/19 05:45 VTE Score: 4 VTE Risk Level: Low Risk - Prophylaxis Types of VTE Prophylaxis: TEDS Knee High (ARACELI HOSE ORDER PLACED) Location of Applied Device: Not Applicable
--- NOTE | 2019-08-13 09:08 | Progress Note ---
Internal Medicine - PN: Subj *Date: 08/13/19 *Time: 09:05 Interval history: looks better but dark drainage in ng - abd soft bs present - labs and xray pending - surg visit pending Exam Vital signs and Labs for Last 24 Hours: Temp Pulse Resp BP Pulse Ox 98.9 F 87 20 150/81 H 90 L 08/13/19 08:00 08/13/19 08:00 08/13/19 08:00 08/13/19 08:00 08/13/19 08:00 Laboratory Results - last 24 hr 08/12/19 12:05: POC Glucose 72 08/12/19 16:00: POC Glucose 78 08/12/19 20:21: POC Glucose 81 08/13/19 05:19: POC Glucose 83 I & O for Last 24 hours: Intake & Output 08/10/19 08/11/19 08/12/19 08/13/19 11:59 11:59 11:59 11:59 Intake Total 1540 / 1540 1304 / 1304 Output Total 600 / 600 1450 / 1450 Balance 940 / 940 -146 / -146 Weight 240 lb 7 oz 240 lb 7.013 oz - Constitutional no acute distress, obese - *Routine HEENT Exam Head: Present: normocephalic Eye: Present: EOMI, PERRL. Absent: conjunctival icterus ENT: Present: mucous membranes dry Comments: has ng tube - *Routine Neck Exam Absent: JVD - *Routine Respiratory Exam Present: CTA bilaterally - *Routine Cardiovascular Exam Present: RRR, murmur - *Routine Abdominal Exam Present: soft - *Routine Extremities Exam Absent: calf tenderness - *Routine Skin Exam Present: intact - *Routine Neurological Exam Present: oriented X3, CN II-XII intact - Routine Psychiatric Exam Present: normal affect Assessment and Plan (1) Abdominal pain Current visit: Yes Status: Acute Qualifiers: Abdominal location: lower abdomen, unspecified Qualified Code(s): R10.30 - Lower abdominal pain, unspecified Category: Medical Code(s): R10.9 - Unspecified abdominal pain (2) Partial small bowel obstruction Current visit: Yes Status: Acute Category: Medical Code(s): K56.600 - Partial intestinal obstruction, unspecified as to cause (3) Renal insufficiency Current visit: Yes Status: Acute Category: Medical Code(s): N28.9 - Diso rder of kidney and ureter, unspecified (4) Abdominal lymphadenopathy Current visit: Yes Status: Acute Category: Medical Code(s): R59.0 - Localized enlarged lymph nodes (5) Diabetes 1.5, managed as type 2 Current visit: Yes Status: Acute Category: Medical Code(s): E13.9 - Other specified diabetes mellitus without complications (6) Anemia Current visit: Yes Status: Acute Qualifiers: Anemia type: unspecified type Qualified Code(s): D64.9 - Anemia, unspecified Category: Medical Code(s): D64.9 - Anemia, unspecified (7) Elevated erythrocyte sedimentation rate Current visit: Yes Status: Acute Category: Medical Code(s): R70.0 - Elevated erythrocyte sedimentation rate (8) Neuritis of upper extremity Current visit: Yes Status: Acute Category: Medical Code(s): M79.2 - Neuralgia and neuritis, unspecified
[2019-08-13 10:22] LABS: Anion Gap 15.3 mEq/L (5-15); Calcium 7.9 mg/dL (8.5-10.1)
[2019-08-13 10:27] LABS: Basophils % 0.3 % (0.1-2.0); Eosinophils % 0.4 % (0.1-12.0); Hematocrit 38.9 % (42.0-52.0); Hemoglobin 12.7 g/dL (14.1-18.0); Lymphocytes # 1.5 K/mm3 (0.7-4.5); Lymphocytes % 29.2 % (10-50); Mean Corpuscular HGB Conc 32.7 g/dL (31.8-35.4); Mean Corpuscular Volume 94.2 fl (80-94); Monocytes # 0.5 K/mm3 (0.1-1.0); Monocytes % 9.9 % (1.7-9.3); Neutrophils # 3.1 K/mm3 (1.8-7.8); Neutrophils % 60.1 % (37.0-80.0); Platelet Count 163 K/mm3 (142-424); Red Blood Count 4.13 M/mm3 (4.60-6.20); Red Cell Distribution Width 13.8 % (11.5-17.5); White Blood Count 5.1 K/mm3 (4.8-10.8)
--- NOTE | 2019-08-13 18:27 | Progress Note ---
Subjective Narrative: Mr. Gramajo is an 84-year-old male admitted for small bowel obstruction. Today is hospital day #3. NG tube has been clamped for approximately 6 hours. Minimal residual. No nausea or emesis during clamp trial. Reports small amount of flatus and bowel movement earlier. Clinically improved. Exam Vital signs and Labs for Last 24 Hours: Temp Pulse Resp BP Pulse Ox 98.5 F 85 20 191/77 H 92 L 08/13/19 16:00 08/13/19 16:00 08/13/19 16:00 08/13/19 16:00 08/13/19 16:00 Laboratory Results - last 24 hr 08/12/19 20:21: POC Glucose 81 08/13/19 05:19: POC Glucose 83 08/13/19 09:50: WBC 5.1, RBC 4.13 L, Hgb 12.7 L, Hct 38.9 L, MCV 94.2 H, MCH 30.8, MCHC 32.7, RDW 13.8, Plt Count 163, MPV 9.0, Neut % (Auto) 60.1, Lymph % (Auto) 29.2, [place] % (Auto) 9.9 H, Eos % (Auto) 0.4, Baso % (Auto) 0.3, Neut # (Auto) 3.1, Lymph # (Auto) 1.5, [place] # (Auto) 0.5, Eos # (Auto) 0.0, Baso # (Auto) 0.0 08/13/19 09:50: Sodium 140, Potassium 4.3, Chloride 104, Carbon Dioxide 25, Anion Gap 15.3 H, BUN 19 H, Creatinine 1.26, Estimated Creat Clear 69, Estimated GFR 55 L, Est GFR ( Amer) 66, Glucose 96, Calcium 7.9 L, Lipase 86 08/13/19 11:27: POC Glucose 107 08/13/19 16:10: POC Glucose 99 I & O for Last 24 hours: Intake & Output 08/11/19 08/12/19 08/13/19 08/14/19 11:59 11:59 11:59 11:59 Intake Total 1540 / 1540 1304 / 1304 1974 Output Total 600 / 600 1450 / 1450 Balance 940 / 940 -146 / -146 1974 Weight 109.061 kg 109.061 kg - Constitutional Comments: No distress. Resting comfortably. - *Routine Abdominal Exam Comments: Soft. Nondistended. Nontender. Progress Note: A&P (1) Abdominal pain Status: Acute Current Visit: Yes (2) Partial small bowel obstruction Status: Acute Current Visit: Yes (3) Renal insufficiency Status: Acute Current Visit: Yes (4) Abdominal lymphadenopathy Status: Acute Current Visit: Yes (5) Diabetes 1.5, managed as type 2 Status: Acute Current Visit: Yes (6) Anemia Status: Acute Current Visit: Yes (7) Elevated erythrocyte sedimentation rate Status: Acute Current Visit: Yes (8) Neuritis of upper extremity Status: Acute Current Visit: Yes Assessment and Plan for All Diagnoses:: 1. Small bowel obstruction; partial. Clinically improved. Appears to have resolved. Additional milk of magnesia this evening. Laboratory evaluations noted. Clamp trial for NG tube has been without nausea or emesis. Removed. Begin sips of clears. Advance diet in AM if no problems overnight. Begin discharge planning.
--- NOTE | 2019-08-14 08:13 | Progress Note ---
Subjective Narrative: Patient is an 84-year-old male who had a splenic flexure resection for carcinoma in 1996 and had right hemicolectomy [place] [address] Venegas for colon cancer. He presented with findings of partial small bowel obstruction. He has been managed nonoperatively thus far and had his nasogastric tube removed yesterday. Subsequently he has done quite well. He strongly states he wants something to eat. He has been passing flatus. Exam Vital signs and Labs for Last 24 Hours: Temp Pulse Resp BP Pulse Ox 98.4 F 84 24 189/73 H 92 L 08/14/19 04:00 08/14/19 04:00 08/14/19 04:00 08/14/19 04:00 08/14/19 04:00 Laboratory Results - last 24 hr 08/13/19 09:50: WBC 5.1, RBC 4.13 L, Hgb 12.7 L, Hct 38.9 L, MCV 94.2 H, MCH 30.8, MCHC 32.7, RDW 13.8, Plt Count 163, MPV 9.0, Neut % (Auto) 60.1, Lymph % (Auto) 29.2, [place] % (Auto) 9.9 H, Eos % (Auto) 0.4, Baso % (Auto) 0.3, Neut # (Auto) 3.1, Lymph # (Auto) 1.5, [place] # (Auto) 0.5, Eos # (Auto) 0.0, Baso # (Auto) 0.0 08/13/19 09:50: Sodium 140, Potassium 4.3, Chloride 104, Carbon Dioxide 25, Anion Gap 15.3 H, BUN 19 H, Creatinine 1.26, Estimated Creat Clear 69, Estimated GFR 55 L, Est GFR ( Amer) 66, Glucose 96, Calcium 7.9 L, Lipase 86 08/13/19 11:27: POC Glucose 107 08/13/19 16:10: POC Glucose 99 08/13/19 21:09: POC Glucose 111 H I & O for Last 24 hours: Intake & Output 08/11/19 08/12/19 08/13/19 08/14/19 11:59 11:59 11:59 11:59 Intake Total 1540 / 1540 1304 / 1304 3168 / 3168 Output Total 600 / 600 1450 / 1450 550 / 550 Balance 940 / 940 -146 / -146 2618 / 2618 Weight 240 lb 7 oz 240 lb 7.013 oz 234 lb 8 oz - *Routine Abdominal Exam Present: soft, normoactive bowel sounds. Absent: tenderness Progress Note: A&P (1) Abdominal pain Status: Acute Current Visit: Yes (2) Partial small bowel obstruction Status: Acute Assessment and plan: Patient seems to be clinically improving with partial small bowel obstruction w ith nonoperative management. Give clear liquids this morning. If tolerates may have full liquids at lunchtime. If he continues to do well possible discharge later today or soon. Of course if he develops recurrent symptoms this would not be appropriate. Current Visit: Yes (3) Renal insufficiency Status: Acute Current Visit: Yes (4) Abdominal lymphadenopathy Status: Acute Current Visit: Yes (5) Diabetes 1.5, managed as type 2 Status: Acute Current Visit: Yes (6) Anemia Status: Acute Current Visit: Yes (7) Elevated erythrocyte sedimentation rate Status: Acute Current Visit: Yes (8) Neuritis of upper extremity Status: Acute Current Visit: Yes
--- NOTE | 2019-08-14 12:12 | Discharge Summary ---
General - General Admission date:: 08/11/19 Discharge date: 08/14/19 HPI HPI: this wm with progressive abd pain over the last few days - pt was seen in the pcp office and sent to the ed where he was found to have sbo - pt was admitted with ivf and ng suction and surg consult Hospital Course Hospital Course: pt presented to ed with progressive abd swelling and pain with vomiting and was found to have sbo- he was admitted and treated conservative - he was seen by surg -. Avila is an 84-year-old male admitted to [facility] for complaints of nausea and emesis for approximately 48 hours. Initial evaluation included CT A/P; findings suggestive of small bowel obstruction with visible transition point. Admitted for bowel rest. Nasogastric tube placed. Approximately 600 mLs evacuated. This morning, patient reports no further nausea or emesis since admission. Small amount of flatus and bowel movement noted. No fever or chills. Clinically improved. Past medical history is sign ificant for colon cancer for which he has undergone colon resection. Patient reports that he has had 2 operations for colon cancer in the past; this is not verified due to the lack of records available. Review of CT imaging demonstrates staple line in the left colon consistent with left colectomy. Index operation over 5 years ago. No evident disease during the 5-year surveillance period. He has been followed by Dr. Fredo Dinh in the past. Required Xeloda. pt has progressed well and will be d/c to home and followed as op -he had stable labs and was active and tolerating diet Objective Vital signs: Temp Pulse Resp BP Pulse Ox 98.2 F 77 20 186/75 H 94 L 08/14/19 08:00 08/14/19 08:00 08/14/19 08:00 08/14/19 08:00 08/14/19 08:00 no acute distress - *Routine HEENT Exam Head: Present: normocephalic Eye: Present: EOMI, PERRL ENT: Present: mucous membranes dry - *Routine Neck Exam Absent: JVD - *Routine Respiratory Exam Present: CTA bilaterally - *Routine Cardiovascular Exam Present: RRR, murmur - *Routine Abdominal Exam Present: soft - *Routine Extremities Exam Present: full ROM - *Routine Skin Exam Present: intact - *Routine Neurological Exam Present: alert, CN II-XII intact - Routine Psychiatric Exam Present: normal affect Results Labs on day of discharge: Labs from last 24 hours 08/14/19 08/13/19 08/13/19 06:08 21:09 16:10 POC Glucose 95 111 H 99 DS: Diagnosis - Discharge Diagnosis (1) Abdominal pain Status: Acute (2) Partial small bowel obstruction Status: Acute (3) Renal insufficiency Status: Acute (4) Abdominal lymphadenopathy Status: Acute (5) Diabetes 1.5, managed as type 2 Status: Acute (6) Anemia Status: Acute (7) Elevated erythrocyte sedimentation rate Status: Acute (8) Neuritis of upper extremity Status: Acute Discharge Plan - Patient Discharge Instructions ACTIVITY: Continue current activity DIET: continue same diet Patient Instructions: Small Bowel Obstruction, DI for Small Bowel Obstruction, Acute Renal Failure, DI for Abdominal Pain-Adult, DI for Acute Abdomen - Follow up Plan Disposition: Home, Self-Fpc Medications: Home Medications Medication Instructions Recorded Confirmed Type aspirin 81 mg tablet,delayed 81 mg PO DAILY 03/17/18 08/12/19 History release Amlodipine Besylate [Amlodipine 10 mg PO HS 08/11/19 08/12/19 History 10mg Tab] Atorvastatin Calcium [Atorvastatin 40 mg PO HS 08/11/19 08/12/19 History 40mg Tab] Desloratadine 5 mg PO DAILY 08/11/19 08/12/19 History Fenofibrate Nanocrystallized 145 mg PO HS 08/11/19 08/12/19 History [Fenofibrate] Furosemide [Furosemide 20mg Tab] 20 mg PO DAILY 08/11/19 08/12/19 History Insulin NPH Hum/Reg Insulin Hm 30 units SQ DAILY 08/11/19 08/12/19 History [Humulin 70/30 Kwikpen] Metoprolol Succinate 100 mg PO DAILY 08/11/19 08/12/19 History Pen Needle, Diabetic [Easy Touch 1 units .ROUTE .MEDSUPPLY 08/11/19 08/11/19 History Pen Needle] lisinopriL [Lisinopril 20mg Tab] 20 mg PO BID 08/11/19 08/12/19 History Cholecalciferol (Vitamin D3) 1,000 unit PO DAILY 08/12/19 08/12/19 History [Vitamin D3 1,000 Unit Cap] Insulin NPH Hum/Reg Insulin Hm 25 units SQ HS 08/12/19 08/12/19 History [Humulin 70/30 Kwikpen] Lansoprazole [Prevacid] 30 mg PO DAILY 08/12/19 08/12/19 History Multivitamin [Daily Multiple 1 each PO DAILY 08/12/19 08/12/19 History Vitamin] Vit B6/Me-Thfolate/Me-B12/Ala 1 each PO DAILY 08/12/19 08/12/19 History [Nufola Capsule] Prescriptions/Medication Reconciliation: Continued aspirin 81 mg tablet,delayed release 81 mg PO DAILY Pen Needle, Diabetic [Easy Touch Pen Needle] 1 units .ROUTE .MEDSUPPLY lisinopriL [Lisinopril 20mg Tab] 20 mg PO BID Insulin NPH Hum/Reg Insulin Hm [Humulin 70/30 Kwikpen] 30 units SQ DAILY Furosemide [Furosemide 20mg Tab] 20 mg PO DAILY Fenofibrate Nanocrystallized [Fenofibrate] 145 mg PO HS Desloratadine 5 mg PO DAILY Atorvastatin Calcium [Atorvastatin 40mg Tab] 40 mg PO HS Amlodipine Besylate [Amlodipine 10mg Tab] 10 mg PO HS Lansoprazole [Prevacid] 30 mg PO DAILY Cholecalciferol (Vitamin D3) [Vitamin D3 1,000 Unit Cap] 1,000 unit PO DAILY Metoprolol Succinate 100 mg PO DAILY Multivitamin [Daily Multiple Vitamin] 1 each PO DAILY Vit B6/Me-Thfolate/Me-B12/Ala [Nufola Capsule] 1 each PO DAILY Insulin NPH Hum/Reg Insulin Hm [Humulin 70/30 Kwikpen] 25 units SQ HS - Problem Reconciliation Problems Reviewed?: Yes
== END 2019-08-14 15:18 | disposition home or self-care (01) | DRG 390 ==
LOC: ER 15:49 → 2ND 22:20
PROVIDERS: ADMIT Emergency Medicine; ATTEND Emergency Medicine
CPT/HCPCS: 36415; 43760; 43762; 74000; 74018; 74021; 74022; 74177; 80048; 80053; 81001; 82150; 82962; 83690; 83735; 85025; 85651; 86140; 96365; 96375; 96376; 99285; J2405; J3490; Q9967

== ENCOUNTER 2019-08-16 07:58 | Inpatient (IN) ==
--- NOTE | 2019-08-16 08:17 | Emergency Department Note ---
ED Disposition Clinical Impression: Hypoglycemia, Nausea vomiting and diarrhea, Small bowel obstruction Disposition: Admitted As Inpatient Condition on Discharge: Fair - Critical Care Critical Care Time: No Attestation: On 08/16/19, the high probability of a clinically significant, sudden or life threatening deterioration of the following system(s) required my full and direct attention, intervention and personal management. The time I documented below is in addition to time spent performing reported procedures but includes the following listed in this critical care notation. Medical Decision Making - Medical Records Medical records reviewed: Yes: I reviewed the patient's medical records. - [place] Inquiry Pt receiving controlled substance: No Vital Signs: 08/16/19 08:13 08/16/19 08:58 Temperature 99.9 F H Temperature Source Oral Pulse Rate [Right Radial] 89 75 Respiratory Rate 18 Blood Pressure [Right Arm] 146/87 H 114/56 L Blood Pressure Mean [Right Arm] 106 75 02 Sat by Pulse Oximetry 91 L 95 - Lab Data Lab Results 08/16/19 08:04: POC Glucose < 40 L* 08/16/19 08:15: WBC 7.1 D, RBC 4.29 L, Hgb 13.0 L, Hct 39.5 L, MCV 92.0, MCH 30.3, MCHC 33.0, RDW 14.0, Plt Count 205 D, MPV 9.0, Neut % (Auto) 75.4, Lymph % (Auto) 14.2, [place] % (Auto) 10.1 H, Eos % (Auto) 0.1, Baso % (Auto) 0.2, Neut # (Auto) 5.3, Lymph # (Auto) 1.0, [place] # (Auto) 0.7, Eos # (Auto) 0.0, Baso # (Auto) 0.0 08/16/19 08:15: Sodium 136, Potassium 3.5, Chloride 101, Carbon Dioxide 23, Anion Gap 15.5 H, BUN 15, Creatinine 1.31 H, Estimated Creat Clear 72, Estimated GFR 52 L, Est GFR ( Amer) 63, Glucose 36 L*, Calcium 8.2 L, Total Bilirubin 0.6, AST 52 H, ALT 33, Alkaline Phosphatase 48, Troponin I 0.18 H, To jennifer Protein 7.7, Albumin 2.7 L, Globulin 5.0 H, Albumin/Globulin Ratio 0.5 L, Amylase 24 L, Lipase 71 L 08/16/19 08:15: Lactate 1.9 08/16/19 08:15: Influenza Type A Ag Negative, Influenza Type B Ag Negative 08/16/19 08:34: POC Glucose 88 08/16/19 09:56: POC Glucose 67 L Result diagrams: 08/16/19 08:15 08/16/19 08:15 Orders (Tests/Meds): ED MEDICATIONS Generic Name Dose Route Start Last Admin Trade Name Freq PRN Reason Stop Dose Admin Sodium Chloride 1,000 mls @ 999 mls/hr 08/16/19 09:15 Sod Chlor 0.9% 1000ml Bag IV 08/16/19 10:15 .Q1H1M JHON Discontinued Medications Generic Name Dose Route Start Last Admin Trade Name Freq PRN Reason Stop Dose Admin Acetaminophen 1,000 mg 08/16/19 08:53 08/16/19 09:02 Tylenol 500mg Tablet PO 08/16/19 08:54 1,000 mg ONCE ONE Administration Dextrose 50 ml 08/16/19 08:18 08/16/19 08:05 Dextrose 50% 50ml Syringe IVP 08/16/19 08:19 50 ml ONCE ONE Administration Dextrose 25 ml 08/16/19 09:57 08/16/19 10:12 Dextrose 50% 50ml Syringe IVP 08/16/19 09:58 25 ml ONCE ONE Administration Sodium Chloride 1,000 mls @ 999 mls/hr 08/16/19 08:45 08/16/19 08:45 Sod Chlor 0.9% 1000ml Bag IV 08/16/19 09:45 999 mls/hr .Q1H1M JHON Administration Piperacillin Sod/Tazobactam 100 mls @ 200 mls/hr 08/16/19 08:36 08/16/19 08:46 Sod 4.5 gm/ Sodium Chloride IV 08/16/19 09:05 200 mls/hr ONCE ONE Administration Protocol Ioversol 75 ml 08/16/19 09:10 08/16/19 09:11 Rad-Optiray 350 100ml Vial IV 08/16/19 09:11 75 ml ONCE ONE Administration Protocol Sodium Chloride 10 ml 08/16/19 09:10 08/16/19 09:11 Rad-Saline Flush 10ml Syringe IV 08/16/19 09:11 10 ml ONCE ONE Administration ORDERS Category Date Time Status Troponin I Q3H Lab 08/16/19 11:30 Ordered Troponin I Q3H Lab 08/16/19 14:30 Ordered Urinalysis and Microscopic Stat Lab 08/16/19 08:17 Ordered Blood Culture Stat Micro 08/16/19 08:19 Received - CT Data CT Scan: Abdomen, Pelvis Time Received: 10:[address] Reviewed: Yes: I have reviewed the patient's CT results Findings Narrative: Baseline small bowel obstruction, right pleural effusion, possible metastatic disease. No significant change of small bowel obstruction. - ECG Data Tracing #1 I reviewed this ECG and interpreted as documented below: EKG shows some motion artifact, but in general no STEMI. There is a sinus rhythm with a heart rate of 84. Intraventricular conduction delay. Normal ID Medical Decision Narrative: Patient initially arrives with hypoglycemia which improved significantly with an amp of D50. Patient has improved glucose, but later drops again, so was given more D50. He will need to remain n.p.o. as of right now. CT scan shows no significant change in the small bowel obstruction. There is evidence of concern for metastatic disease, also right chest pleural effusion. He has no leukocytosis and is technically afebrile, though he does have a temperature of 99.9. He was covered empirically with Zosyn for possible hospital-acquired infection, but does not trigger sepsis at this time, though sepsis protocol was initiated on arrival given concern with elevated temperature and recent hospital stay. I discussed this case with Dr. Og and patient will be admitted for further observation. General Adult HPI - General Stated complaint: fever chills v/d weak Time Seen by Provider: 08/16/19 08:16 Source of Information: Patient, Spouse Limitations: No Limitations - History of Present Illness HPI narrative: This is an 84-year-old male with a past medical history significant for hypertension, hyperlipidemia, diabetes mellitus, recent hospital admission for adequately managed small bowel obstruction discharged 2 days ago who presents to the emergency department for vomiting and watery diarrhea, increasing fatigue and subjective fever and chills while at home for the last 36 hours. He left the hospital without any difficulty, started developing symptoms again yesterday. He did have some right lower quadrant abdominal pain, but that has resolved. He denies any abdominal pain at this time, no chest pain or shortness of breath. Nothing makes his symptoms better or worse. He has not tried any medications at home for his symptoms. - Related Data Home Medications Medication Instructions Recorded Confirmed aspirin 81 mg tablet,delayed 81 mg PO DAILY 03/17/18 08/12/19 release Amlodipine Besylate [Amlodipine 10 mg PO HS 08/11/19 08/12/19 10mg Tab] Atorvastatin Calcium [Atorvastatin 40 mg PO HS 08/11/19 08/12/19 40mg Tab] Desloratadine 5 mg PO DAILY 08/11/19 08/12/19 Fenofibrate Nanocrystallized 145 mg PO HS 08/11/19 08/12/19 [Fenofibrate] Furosemide [Furosemide 20mg Tab] 20 mg PO DAILY 08/11/19 08/12/19 Insulin NPH Hum/Reg Insulin Hm 30 units SQ DAILY 08/11/19 08/12/19 [Humulin 70/30 Kwikpen] Metoprolol Succinate 100 mg PO DAILY 08/11/19 08/12/19 Pen Needle, Diabetic [Easy Touch 1 units .ROUTE .MEDSUPPLY 08/11/19 08/11/19 Pen Needle] lisinopriL [Lisinopril 20mg Tab] 20 mg PO BID 08/11/19 08/12/19 Cholecalciferol (Vitamin D3) 1,000 unit PO DAILY 08/12/19 08/12/19 [Vitamin D3 1,000 Unit Cap] Insulin NPH Hum/Reg Insulin Hm 25 units SQ HS 08/12/19 08/12/19 [Humulin 70/30 Kwikpen] Lansoprazole [Prevacid] 30 mg PO DAILY 08/12/19 08/12/19 Multivitamin [Daily Multiple 1 each PO DAILY 08/12/19 08/12/19 Vitamin] Vit B6/Me-Thfolate/Me-B12/Ala 1 each PO DAILY 08/12/19 08/12/19 [Nufola Capsule] Allergies Allergy/AdvReac Type Severity Reaction Status Date / Time No Known Allergies Allergy Verified 08/16/19 08:17 [facility] History - Hepatitis A Screen Attestation statement:: This patient has been screened for Hepatitis A risk factors. I have reviewed the patient's past medical history: Yes Medical History: Reports:: Cancer (colon), Diabetes Mellitus Type 2, Hyperlipidemia, Hypertension, Myocardial Infarction, Renal Insufficiency Other Medical History: Reports: Arthritis, Chemotherapy, Radiation Therapy, Other (He has had 2 operations for colon cancer one kidney removed for cancer) Other Surgeries: Yes: Appendectomy, Cancer Surgery, Cardiac Surgery, Colon Resection Amputation: No Fractures: No - Social History Smoking Status: Never smoker Alcohol Intake: never Alcohol Intake Frequency:: other Substance Use Type: denies use Occupational Status: retired Housing: house Household Members: spouse Family Hx:: No significant family history, Heart Attack, Hypertension ROS Obtained: Yes All systems reviewed & no additional complaints Physical Exam - General General appearance: alert, in no apparent distress - Head Head exam: atraumatic, normocephalic, normal inspection - ENT ENT exam: Present: normal oropharynx, mucous membranes dry - Neck Neck exam: Present: normal inspection, full ROM, trachea midline - Chest Chest inspection: Present: normal inspection, symmetric chest wall rise. Absent: tenderness - Respiratory Respiratory exam: Present: normal lung sounds bilaterally. Absent: respiratory distress - Cardiovascular Cardiovascular exam: Present: regular rate, normal rhythm. Absent: JVD - Abdominal Exam Abdominal exam: Present: soft, other (Decreased bowel sounds throughout except for right lower quadrant where there are hyperactive bowel sounds). Absent: distention, tenderness, guarding - Neurological Exam Neurological exam: Present: alert, oriented X3 - Psychiatric Psychiatric exam: Present: normal affect, normal mood - Skin Skin exam: Present: warm, dry
[2019-08-16 08:39] LABS: Basophils % 0.2 % (0.1-2.0); Eosinophils % 0.1 % (0.1-12.0); Hematocrit 39.5 % (42.0-52.0); Lymphocytes % 14.2 % (10-50); Monocytes # 0.7 K/mm3 (0.1-1.0); Monocytes % 10.1 % (1.7-9.3); Neutrophils # 5.3 K/mm3 (1.8-7.8); Neutrophils % 75.4 % (37.0-80.0); Platelet Count 205 K/mm3 (142-424); Red Blood Count 4.29 M/mm3 (4.60-6.20); White Blood Count 7.1 K/mm3 (4.8-10.8)
[2019-08-16 08:56] LABS: Albumin Level 2.7 gm/dL (3.4-5.0); Albumin/Globulin Ratio 0.5 (1.1-1.8); Anion Gap 15.5 mEq/L (5-15); Bilirubin,Total 0.6 mg/dL (0.2-1.0); Calcium 8.2 mg/dL (8.5-10.1); Total Protein,Serum 7.7 gm/dL (6.4-8.2)
[2019-08-16 10:16] LABS: Microscopic, Urine URINE MICROSCOPIC (MICROSCOPIC)
[2019-08-16 10:20] LABS: Appearance,Urine CLEAR (Clear); Bilirubin,Urine Negative (Negative); Blood, Urine TRACE-I (Negative); Color,Urine YELLOW (Yellow); Glucose,Urine (UA) Negative (Negative); Ketones,Urine Negative (Negative); Leukocyte Esterase,Urine Negative (Negative); PH,Urine 6.5 (5.0-8.5); Protein,Urine 1+ (Negative); Urobilinogen,Urine 0.2 EU/dl (0.2)
[2019-08-16 10:39] LABS: Bacteria,Urine Trace /lpf; Mucus,Urine 2+ /lpf; Squamous Epithelial Cell,Urine Occasional #/hpf (0-5)
--- NOTE | 2019-08-16 11:35 | Pharmacy Consult Notes ---
[facility] Pharmacy VTE Monitoring - Patient Demographics Admission date: 08/16/19 Report Date: 08/16/19 Time: 11:35 Allergies/Adverse Reactions: Patient Allergies No Known Allergies Allergy (Verified 08/16/19 08:17) Height: 1.88 m Weight: 119.295 kg Patient Problems: Current Active Problems SBO (small bowel obstruction) (Acute) Hypoglycemia (Acute) Nausea vomiting and diarrhea (Acute) - VTE Risk Labs: VTE Related Lab Results Hgb 13.0 g/dL (14.1-18.0) L 08/16/19 08:15 Hct 39.5 % (42.0-52.0) L 08/16/19 08:15 Plt Count 205 K/mm3 (142-424) D 08/16/19 08:15 BUN 15 mg/dL (7-18) 08/16/19 08:15 Creatinine 1.31 mg/dL (0.70-1.30) H 08/16/19 08:15 Estimated Creat Clear 72 mL/min (50-200) 08/16/19 08:15 - Prophylaxis VTE Prophylaxis Ordered?: Yes Types of VTE Prophylaxis: TEDS Knee High Location of Applied Device: Bilateral Lower Extremeties
--- NOTE | 2019-08-16 13:19 | History & Physical Report ---
*Admission Date: 08/16/19 *Chief complaint: abd pain *History of present illness: this wm who was [facility] and was treated with ng tube and improved over the course of a few days - he was doing better and tolerating diet and at home has had dec po intake with abd pain and loose stool and had diaphoresis this am and dec blood glu - he was seen in the ed -This is an 84-year-old male with a past medical history significant for hypertension, hyperlipidemia, diabetes mellitus, recent hospital admission for adequately managed small bowel obstruction discharged 2 days ago who presents to the emergency department for vomiting and watery diarrhea, increasing fatigue and subjective fever and chills while at home for the last 36 hours. He left the hospital without any difficulty, started developing symptoms again yesterday. He did have some right lower quadrant abdominal pain, but that has resolved. He denies any abdominal pain at this time, no chest pain or shortness of breath. Nothing makes his symptoms better or worse. He has not tried any medications at home for his symptoms.nt initially arrives with hypoglycemia which improved significantly with an amp of D50. Patient has improved glucose, but later drops again, so was given more D50. He will need to remain n.p.o. as of right now. CT scan shows no significant change in the small bowel obstruction. There is evidence of concern for metastatic disease, also right chest pleural effusion. He has no leukocytosis and is technically afebrile, though he does have a temperature of 99.9. He was covered empirically with Zosyn for possible hospital-acquired infection, but does not trigger sepsis at this time, though sepsis protocol was initiated on arrival given concern with elevated temperature and recent hospital stay. I discussed this case with Dr. Og and patient will be admitted for further observation. [facility] History I have reviewed the patient's past medical history: Yes Medical History: Reports:: Cancer (colon), Diabetes Mellitus Type 2, Hyperlipidemia, Hypertension, Myocardial Infarction, Renal Insufficiency *Have you ever received a pneumonia vaccine?: Yes *Have you received a flu vaccine this season?: Yes Other Medical History: Reports: Arthritis, Chemotherapy, Radiation Therapy, Other (He has had 2 operations for colon cancer one kidney removed for cancer) Other Surgeries: Yes: Appendectomy, Cancer Surgery, Cardiac Surgery, Colon Resection Amputation: No Fractures: No - *Social History Smoking Status: Never smoker Alcohol Intake: never Alcohol Intake Frequency:: other Substance Use Type: denies use *Occupational Status:: retired Housing: house Household Members: spouse *Travel in the last 8 weeks: None Family Hx:: No significant family history, Heart Attack, Hypertension Review of Systems - Review of Systems Review of systems:: pertinent systems reviewed and negative unless documented below - Constitutional Denies headache(s) - Eyes Denies change in vision - ENT Reports dry mouth - *Cardiovascular Denies chest pain at rest - *Respiratory Denies cough - *Gastrointestinal Reports abdominal pain, Reports nausea, Reports vomiting - *Genitourinary Denies blood in urine - *Musculoskeletal Denies joint pain - Integumentary/Breasts Denies rash - *Neurologic Denies seizure-like activity - Psychiatric Denies anxiety Meds Home Medications Medication Instructions Recorded Confirmed Type aspirin 81 mg tablet,delayed 81 mg PO DAILY 03/17/18 08/16/19 History release Amlodipine Besylate [Amlodipine 10 mg PO HS 08/11/19 08/16/19 History 10mg Tab] Atorvastatin Calcium [Atorvastatin 40 mg PO HS 08/11/19 08/16/19 History 40mg Tab] Desloratadine 5 mg PO DAILY 08/11/19 08/16/19 History Fenofibrate Nanocrystallized 145 mg PO HS 08/11/19 08/16/19 History [Fenofibrate] Furosemide [Furosemide 20mg Tab] 20 mg PO DAILY 08/11/19 08/16/19 History Insulin NPH Hum/Reg Insulin Hm 30 units SQ DAILY 08/11/19 08/16/19 History [Humulin 70/30 Kwikpen] Metoprolol Succinate 100 mg PO DAILY 08/11/19 08/16/19 History lisinopriL [Lisinopril 20mg Tab] 20 mg PO BID 08/11/19 08/16/19 History Cholecalciferol (Vitamin D3) 1,000 unit PO DAILY 08/12/19 08/16/19 History [Vitamin D3 1,000 Unit Cap] Insulin NPH Hum/Reg Insulin Hm 25 units SQ HS 08/12/19 08/16/19 History [Humulin 70/30 Kwikpen] Lansoprazole [Prevacid] 30 mg PO DAILY 08/12/19 08/16/19 History Multivitamin [Daily Multiple 1 each PO DAILY 08/12/19 08/16/19 History Vitamin] Vit B6/Me-Thfolate/Me-B12/Ala 1 each PO DAILY 08/12/19 08/16/19 History [Nufola Capsule] Allergies Allergy/AdvReac Type Severity Reaction Status Date / Time No Known Allergies Allergy Verified 08/16/19 08:17 Exam Vital signs and Labs for Last 24 Hours: Temp Pulse Resp BP Pulse Ox 98.1 F 68 16 136/63 96 08/16/19 11:40 08/16/19 11:40 08/16/19 11:45 08/16/19 11:40 08/16/19 11:45 Laboratory Results - last 24 hr 08/16/19 08:04: POC Glucose < 40 L* 08/16/19 08:15: WBC 7.1 D, RBC 4.29 L, Hgb 13.0 L, Hct 39.5 L, MCV 92.0, MCH 30.3, MCHC 33.0, RDW 14.0, Plt Count 205 D, MPV 9.0, Neut % (Auto) 75.4, Lymph % (Auto) 14.2, [place] % (Auto) 10.1 H, Eos % (Auto) 0.1, Baso % (Auto) 0.2, Neut # (Auto) 5.3, Lymph # (Auto) 1.0, [place] # (Auto) 0.7, Eos # (Auto) 0.0, Baso # (Auto) 0.0 08/16/19 08:15: Sodium 136, Potassium 3.5, Chloride 101, Carbon Dioxide 23, Anion Gap 15.5 H, BUN 15, Creatinine 1.31 H, Estimated Creat Clear 72, Estimated GFR 52 L, Est GFR ( Amer) 63, Glucose 36 L*, Calcium 8.2 L, Total Bilirubin 0.6, AST 52 H, ALT 33, Alkaline Phosphatase 48, Troponin I 0.18 H, Total Protein 7.7, Albumin 2.7 L, Globulin 5.0 H, Albumin/Globulin Ratio 0.5 L, Amylase 24 L, Lipase 71 L 08/16/19 08:15: Lactate 1.9 08/16/19 08:15: Influenza Type A Ag Negative, Influenza Type B Ag Negative 08/16/19 08:34: POC Glucose 88 08/16/19 09:56: POC Glucose 67 L 08/16/19 10:10: Urine Color Yellow, Urine Appearance Clear, Urine pH 6.5, Ur Specific [place] 1.010, Urine Protein 1+, Urine Glucose (UA) Negative, Urine Ketones Negative, Urine Blood Trace-i, Urine Nitrate Negative, Urine Bilirubin Negative, Urine Urobilinogen 0.2, Ur Leukocyte Esterase Negative, Urine WBC 5- 10, Ur Squamous Epith Cells Occasional, Urine Bacteria Trace, Urine Mucus 2+ 08/16/19 11:15: POC Glucose 96 I & O for Last 24 hours: Intake & Output 08/14/19 08/15/19 08/16/19 08/17/19 11:59 11:59 11:59 11:59 Weight 232 lb 9 oz - Constitutional no acute distress - *Routine HEENT Exam Head: Present: normocephalic Eye: Present: EOMI, PERRL ENT: Present: mucous membranes dry - *Routine Neck Exam Present: supple - *Routine Respiratory Exam Present: decreased breath sounds - *Routine Cardiovascular Exam Present: RRR, murmur - *Routine Extremities Exam Present: full ROM - *Routine Skin Exam Present: intact - *Routine Neurological Exam Present: alert, oriented X3, CN II-XII intact - Routine Psychiatric Exam Present: normal affect Assessment and Plan (1) Hypoglycemia Current visit: Yes Status: Acute Category: Medical Code(s): E16.2 - Hypoglycemia, unspecified (2) SBO (small bowel obstruction) Current visit: Yes Status: Acute Category: Medical Code(s): K56.609 - Unspecified intestinal obstruction, unspecified as to partial versus complete obstruction (3) Renal insufficiency Current visit: No Status: Acute Category: Medical Code(s): N28.9 - Disorder of kidney and ureter, unspecified (4) Elevated troponin Current visit: Yes Status: Acute Category: Medical Code(s): R79.89 - Other specified abnormal findings of blood chemistry
--- NOTE | 2019-08-17 08:39 | Progress Note ---
Internal Medicine - PN: Subj *Date: 08/17/19 *Time: 11:02 Interval history: Pt states he had two small bm this am and feels hungry Exam Vital signs and Labs for Last 24 Hours: Temp Pulse Resp BP Pulse Ox 98.1 F 66 18 157/67 H 98 08/17/19 07:59 08/17/19 07:59 08/17/19 07:59 08/17/19 07:59 08/17/19 07:59 Laboratory Results - last 24 hr 08/16/19 08:04: POC Glucose < 40 L* 08/16/19 08:15: WBC 7.1 D, RBC 4.29 L, Hgb 13.0 L, Hct 39.5 L, MCV 92.0, MCH 30.3, MCHC 33.0, RDW 14.0, Plt Count 205 D, MPV 9.0, Neut % (Auto) 75.4, Lymph % (Auto) 14.2, [place] % (Auto) 10.1 H, Eos % (Auto) 0.1, Baso % (Auto) 0.2, Neut # (Auto) 5.3, Lymph # (Auto) 1.0, [place] # (Auto) 0.7, Eos # (Auto) 0.0, Baso # (Auto) 0.0 08/16/19 08:15: Sodium 136, Potassium 3.5, Chloride 101, Carbon Dioxide 23, Anion Gap 15.5 H, BUN 15, Creatinine 1.31 H, Estimated Creat Clear 72, Estimated GFR 52 L, Est GFR ( Amer) 63, Glucose 36 L*, Calcium 8.2 L, Total Bilirubin 0.6, AST 52 H, ALT 33, Alkaline Phosphatase 48, Troponin I 0.18 H, Total Protein 7.7, Albumin 2.7 L, Globulin 5.0 H, Albumin/Globulin Ratio 0.5 L, Amylase 24 L, Lipase 71 L 08/16/19 08:15: Lactate 1.9 08/16/19 08:15: Influenza Type A Ag Negative, Influenza Type B Ag Negative 08/16/19 08:34: POC Glucose 88 08/16/19 09:56: POC Glucose 67 L 08/16/19 10:10: Urine Color Yellow, Urine Appearance Clear, Urine pH 6.5, Ur Specific [place] 1.010, Urine Protein 1+, Urine Glucose (UA) Negative, Urine Ketones Negative, Urine Blood Trace-i, Urine Nitrate Negative, Urine Bilirubin Negative, Urine Urobilinogen 0.2, Ur Leukocyte Esterase Negative, Urine WBC 5- 10, Ur Squamous Epith Cells Occasional, Urine Bacteria Trace, Urine Mucus 2+ 08/16/19 11:15: POC Glucose 96 08/16/19 11:47: POC Glucose 96 08/16/19 12:56: POC Glucose 81 08/16/19 13:13: Troponin I 0.19 H 08/16/19 14:54: POC Glucose 99 08/16/19 16:41: POC Glucose 95 08/16/19 16:52: Troponin I 0.19 H 08/16/19 21:07: POC Glucose 110 08/17/19 00:30: POC Glucose 119 H 08/17/19 05:30: POC Glucose 117 H I & O for Last 24 hours: Intake & Output 08/14/19 08/15/19 08/16/19 08/17/19 11:59 11:59 11:59 11:59 Intake Total 1616 / 1616 Output Total 900 / 900 Balance 716 / 716 Weight 232 lb 9 oz 231 lb 8 oz - Constitutional no acute distress - *Routine HEENT Exam Head: Present: normocephalic Eye: Present: PERRL ENT: Present: mucous membranes moist - *Routine Neck Exam Present: supple. Absent: lymphadenopathy - *Routine Respiratory Exam Present: CTA bilaterally - *Routine Cardiovascular Exam Present: RRR - *Routine Abdominal Exam Present: soft, normoactive bowel sounds. Absent: tenderness, distended - *Routine Extremities Exam Present: full ROM, normal capillary refill. Absent: cyanosis, clubbing, edema - *Routine Skin Exam Present: warm. Absent: rash - *Routine Neurological Exam Present: alert, oriented X3 - Routine Psychiatric Exam Present: normal affect Assessment and Plan (1) Hypoglycemia Current visit: Yes Status: Acute Category: Medical Code(s): E16.2 - Hypo glycemia, unspecified (2) SBO (small bowel obstruction) Current visit: Yes Status: Acute Category: Medical Code(s): K56.609 - Unspecified intestinal obstruction, unspecified as to partial versus complete obstruction (3) Renal insufficiency Current visit: No Status: Acute Category: Medical Code(s): N28.9 - Disorder of kidney and ureter, unspecified (4) Elevated troponin Current visit: Yes Status: Acute Category: Medical Code(s): R79.89 - Other specified abnormal findings of blood chemistry - Assessment and plan all Dx Assessment and Plan for all problems:: rounded with kellee all orders per kellee sbf and jared abd x ray today per bety
--- NOTE | 2019-08-17 09:17 | Electrocardiograph Report ---
APPROVED REPORT Exam: Resting ECG HR:84 bpm ECG Measurements Heart Rate 84 AXES MI 172 P 89 QRSd 114 QRS 2 QT 434 T90 QTc 512 <Conclusion> Normal sinus rhythm Possible Inferior infarct, age undetermined ST & T wave abnormality, consider lateral ischemia Prolonged QT Abnormal ECG Electronically signed by : Wolf Marquez, 08/17/2019 09:17:18
--- NOTE | 2019-08-17 11:57 | Consult Report ---
*Admission Date: 08/16/19 *Reason for consult:: Small bowel obstruction *History of present illness: This is an 84-year-old gentleman seen in consultation from the service of Dr. Og after being readmitted for possible partial small bowel obstruction. He was recently admitted with similar symptoms and surgical consultation (Dr. molina again) was obtained. The patient quickly improved and was discharged home. He returned to the emergency department overnight with nausea, vomiting, and diarrhea. A repeat CT scan showed changes consistent with possible persistent small bowel obstruction. This morning he states he "feels better right now". He claims that he was quite distended upon presentation to the emergency department overnight but is "flatter and more normal now". His abdominal pain has improved. He continues to pass flatus and states that he continues to have bowel movements. --------- HPI from this admissions H&P: this wm who was recently admitted at [facility] for sbo and was treated with ng tube and improved over the course of a few days - he was doing better and tolerating diet and at home has had dec po intake with abd pain and loose stool and had diaphoresis this am and dec blood glu - he was seen in the ed -This is an 84-year-old male with a past medical history significant for hypertension, hyperlipidemia, diabetes mellitus, recent hospital admission for adequately managed small bowel obstruction discharged 2 days ago who presents to the emergency department for vomiting and watery diarrhea, increasing fatigue and subjective fever and chills while at home for the last 36 hours. He left the hospital without any difficulty, started developing symptoms again yesterday. He did have some right lower quadrant abdominal pain, but that has resolved. He denies any abdominal pain at this time, no chest pain or shortness of breath. Nothing makes his symptoms better or worse. He has not tried any medications at home for his symptoms.nt initially arrives with hypoglycemia which improved significantly with an amp of D50. Patient has improved glucose, but later drops again, so was given more D50. He will need to remain n.p.o. as of right now. C T scan shows no significant change in the small bowel obstruction. There is evidence of concern for metastatic disease, also right chest pleural effusion. He has no leukocytosis and is technically afebrile, though he does have a temperature of 99.9. He was covered empirically with Zosyn for possible hospital-acquired infection, but does not trigger sepsis at this time, though sepsis protocol was initiated on arrival given concern with elevated temperature and recent hospital stay. I discussed this case with Dr. Og and patient will be admitted for further observation. HPI from Dr. Gerardo's consult note from recent admission: Mr. Gramajo is an 84-year-old male admitted to [facility] for complaints of nausea and emesis for approximately 48 hours. Initial evaluation included CT A/P; findings suggestive of small bowel obstruction with visible transition point. Admitted for bowel rest. Nasogastric tube placed. Approximately 600 mLs evacuated. This morning, patient reports no further nausea or emesis since admission. Small amount of flatus and bowel movement noted. No fever or chills. Clinically improved. Past medical history is significant for colon cancer for which he has undergone colon resection. Patient reports that he has had 2 operations for colon cancer in the past; this is not verified due to the lack of records available. Review of CT imaging demonstrates staple line in the left colon consistent with left colectomy. Index operation over 5 years ago. No evident disease during the 5-year surveillance period. He has been followed by Dr. Fredo Dinh in the past. Required Xeloda. Imression from Dr. Gerardo's recent consultation: 1. Small bowel obstruction; partial. Remote history of colon cancer requiring colectomy and postoperative chemotherapy. Presents with nausea and emesis. CT imaging consistent with partial small bowel obstruction; transition point noted. 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 Nasogastric tube is functioning. Evacuating air and liquid. Small amount of flatus noted today. Plan at this time is to continue bowel rest and IV fluids. Limited sips of clears as allowed. Continue nasogastric decompression. No operative intervention indicated at this time. Imaging has been reviewed and there is some degree of small bowel thickening in the area of obstruction. In consideration of this finding, eventual operative intervention is more likely. No significant laboratory evaluations. Continue current management. Review of Systems - Constitutional Reports chills - Eyes Denies change in vision - ENT Denies change in voice - *Cardiovascular Denies chest pain - *Respiratory Denies cough - *Gastrointestinal Reports abdominal pain, Reports loose stools, Reports nausea, Denies vomiting blood - *Genitourinary Denies blood in urine - *Musculoskeletal Denies deformity - Integumentary/Breasts Denies bleeding lesions - *Neurologic Denies headache(s), Denies seizure-like activity - Psychiatric Denies anxiety - Endocrine Denies flushing - Hematologic/Lymphatic Denies easy bruising - Allergic/Immunologic Denies wheezing [facility] History Medical History: Reports:: Cancer (colon), Diabetes Mellitus Type 2, Hyperlipidemia, Hypertension, Myocardial Infarction, Renal Insufficiency *Have you ever received a pneumonia vaccine?: Yes *Have you received a flu vaccine this season?: Yes Other Medical History: Reports: Arthritis, Chemotherapy, Radiation Therapy, Other (He has had 2 operations for colon cancer one kidney removed for cancer) Other Surgeries: Yes: Appendectomy, Cancer Surgery, Cardiac Surgery, Colon Resection Amputation: No Fractures: No - *Social History Smoking Status: Never smoker Alcohol Intake: never Alcohol Intake Frequency:: other Substance Use Type: denies use *Occupational Status:: retired Housing: house Household Members: spouse *Travel in the last 8 weeks: None Family Hx:: No significant family history, Heart Attack, Hypertension Meds Home Medications Medication Instructions Recorded Confirmed Type aspirin 81 mg tablet,delayed 81 mg PO DAILY 03/17/18 08/16/19 History release Amlodipine Besylate [Amlodipine 10 mg PO HS 08/11/19 08/16/19 History 10mg Tab] Atorvastatin Calcium [Atorvastatin 40 mg PO HS 08/11/19 08/16/19 History 40mg Tab] Desloratadine 5 mg PO DAILY 08/11/19 08/16/19 History Fenofibrate Nanocrystallized 145 mg PO HS 08/11/19 08/16/19 History [Fenofibrate] Furosemide [Furosemide 20mg Tab] 20 mg PO DAILY 08/11/19 08/16/19 History Insulin NPH Hum/Reg Insulin Hm 30 units SQ DAILY 08/11/19 08/16/19 History [Humulin 70/30 Kwikpen] Metoprolol Succinate 100 mg PO DAILY 08/11/19 08/16/19 History lisinopriL [Lisinopril 20mg Tab] 20 mg PO BID 08/11/19 08/16/19 History Cholecalciferol (Vitamin D3) 1,000 unit PO DAILY 08/12/19 08/16/19 History [Vitamin D3 1,000 Unit Cap] Insulin NPH Hum/Reg Insulin Hm 25 units SQ HS 08/12/19 08/16/19 History [Humulin 70/30 Kwikpen] Lansoprazole [Prevacid] 30 mg PO DAILY 08/12/19 08/16/19 History Multivitamin [Daily Multiple 1 each PO DAILY 08/12/19 08/16/19 History Vitamin] Vit B6/Me-Thfolate/Me-B12/Ala 1 each PO DAILY 12/14/19 12/18/19 History [Nufola Capsule] Allergies Allergy/AdvReac Type Severity Reaction Status Date / Time No Known Allergies Allergy Verified 08/16/19 08:17 Exam Vital signs and Labs for Last 24 Hours: Temp Pulse Resp BP Pulse Ox 98.1 F 66 18 157/67 H 98 08/17/19 07:59 08/17/19 07:59 08/17/19 07:59 08/17/19 07:59 08/17/19 08:00 Laboratory Results - last 24 hr 08/16/19 11:47: POC Glucose 96 08/16/19 12:56: POC Glucose 81 08/16/19 13:13: Troponin I 0.19 H 08/16/19 14:54: POC Glucose 99 08/16/19 16:41: POC Glucose 95 08/16/19 16:52: Troponin I 0.19 H 08/16/19 21:07: POC Glucose 110 08/17/19 00:30: POC Glucose 119 H 08/17/19 05:30: POC Glucose 117 H I & O for Last 24 hours: Intake & Output 08/14/19 08/15/19 08/16/19 08/17/19 11:59 11:59 11:59 11:59 Intake Total 1616 / 1616 Output Total 900 / 900 Balance 716 / 716 Weight 232 lb 9 oz 231 lb 8 oz - Constitutional no acute distress - *Routine Respiratory Exam Absent: respiratory distress - *Routine Cardiovascular Exam Present: RRR - *Routine Abdominal Exam Present: soft. Absent: distended Comments: Mildly tender throughout mid and lower abdomen Results - Labs 08/16/19 08:15 08/16/19 08:15 Laboratory Results - last 24 hr 08/16/19 11:47: POC Glucose 96 08/16/19 12:56: POC Glucose 81 08/16/19 13:13: Troponin I 0.19 H 08/16/19 14:54: POC Glucose 99 08/16/19 16:41: POC Glucose 95 08/16/19 16:52: Troponin I 0.19 H 08/16/19 21:07: POC Glucose 110 08/17/19 00:30: POC Glucose 119 H 08/17/19 05:30: POC Glucose 117 H - Imaging CT scan - abdomen: report reviewed, image reviewed CT scan - pelvis: report reviewed, image reviewed Assessment and Plan (1) Hypoglycemia Current visit: Yes Status: Acute Category: Medical Code(s): E16.2 - Hypoglycemia, unspecified (2) SBO (small bowel obstruction) Current visit: Yes Status: Acute Category: Medical Code(s): K56.609 - Unspecified intestinal obstruction, unspecified as to partial versus complete obstruction Radiographic evidence of obstruction with minimal change versus prior CT scan. The patient had fairly dramatic improvement during recent hospitalization and has had fairly dramatic improvement overnight with regard to his most recent symptomatology. Currently, his abdomen is quite soft and nondistended. He continues to have bowel movements. His most recent symptoms and results of serial CT scans may represent intermittent obstruction from adhesive disease but could also represent intermittent obstruction from inflammatory changes. In addition the potential of recurrent malignancy with implants must be entertained; however, this is somewhat less likely and I agree with Dr. Gerardo's recent evaluation/interpretation. I discussed the risks and benefits of further evaluation management and I have discussed the possibility of need for surgical intervention if he does not continue to show improvement or continues to have recurrence. The patient understands the risks and benefits and states that he wishes to avoid surgery "unless it is absolutely necessary". A small bowel follow-through has been ordered Continue NPO status with IV fluid hydration for now Serial abdominal exams (3) Renal insufficiency Current visit: No Status: Acute Category: Medical Code(s): N28.9 - Disorder of kidney and ureter, unspecified (4) Elevated troponin Current visit: Yes Status: Acute Category: Medical Code(s): R79.89 - Other specified abnormal findings of blood chemistry (5) History of colon cancer Current visit: Yes Status: Acute Category: Medical Code(s): Z85.038 - Personal history of other malignant neoplasm of large intestine
[2019-08-18 06:36] LABS: Basophils % 0.4 % (0.1-2.0); Eosinophils # 0.1 K/mm3 (0.0-0.4); Eosinophils % 1.2 % (0.1-12.0); Hematocrit 36.9 % (42.0-52.0); Lymphocytes % 23.5 % (10-50); Mean Corpuscular HGB Conc 32.5 g/dL (31.8-35.4); Mean Corpuscular Volume 91.9 fl (80-94); Mean Platelet Volume 8.6 fl (7.4-10.4); Monocytes # 0.4 K/mm3 (0.1-1.0); Monocytes % 9.2 % (1.7-9.3); Neutrophils # 2.9 K/mm3 (1.8-7.8); Neutrophils % 65.6 % (37.0-80.0); Platelet Count 173 K/mm3 (142-424); Red Blood Count 4.01 M/mm3 (4.60-6.20); Red Cell Distribution Width 14.1 % (11.5-17.5); White Blood Count 4.4 K/mm3 (4.8-10.8)
[2019-08-18 06:42] LABS: Anion Gap 13.1 mEq/L (5-15); Calcium 7.8 mg/dL (8.5-10.1)
--- NOTE | 2019-08-18 07:35 | Progress Note ---
Subjective Patient reports: no new complaints, diarrhea Narrative: The patient is concerned about the timing of his symptoms. He states "they happened right after the flu shot". He states that he developed right arm neurologic deficit and "yellow sticky diarrhea" after his flu shot this year. Exam Vital signs and Labs for Last 24 Hours: Temp Pulse Resp BP Pulse Ox 97.9 F 73 18 174/72 H 95 08/18/19 04:00 08/18/19 04:00 08/18/19 04:00 08/18/19 04:00 08/18/19 04:00 Laboratory Results - last 24 hr 08/17/19 14:20: POC Glucose 102 08/17/19 16:15: POC Glucose 112 H 08/17/19 20:38: POC Glucose 123 H 08/18/19 01:12: POC Glucose 125 H 08/18/19 05:19: POC Glucose 143 H 08/18/19 06:08: WBC 4.4 L D, RBC 4.01 L, Hgb 12.0 L, Hct 36.9 L, MCV 91.9, MCH 29.9, MCHC 32.5, RDW 14.1, Plt Count 173, MPV 8.6, Neut % (Auto) 65.6, Lymph % (Auto) 23.5, [place] % (Auto) 9.2, Eos % (Auto) 1.2, Baso % (Auto) 0.4, Neut # (Auto) 2.9, Lymph # (Auto) 1.0, [place] # (Auto) 0.4, Eos # (Auto) 0.1, Baso # (Auto) 0.0 08/18/19 06:08: Sodium 140, Potassium 3.1 L, Chloride 106, Carbon Dioxide 24, Anion Gap 13.1, BUN 9 D, Creatinine 0.96 D, Estimated Creat Clear 82, Estimated GFR 75, Est GFR ( Amer) 91 D, Glucose 152 H, Calcium 7.8 L I & O for Last 24 hours: Intake & Output 08/15/19 08/16/19 08/17/19 08/18/19 11:59 11:59 11:59 11:59 Intake Total 1616 / 1616 2438 / 2438 Output Total 900 / 900 Balance 716 / 716 2438 / 2438 Weight 232 lb 9 oz 231 lb 8 oz 228 lb - Constitutional no acute distress - *Routine Respiratory Exam Absent: respiratory distress - *Routine Abdominal Exam Present: soft. Absent: distended Progress Note: A&P (1) Hypoglycemia Status: Acute Current Visit: Yes (2) SBO (small bowel obstruction) Status: Acute Assessment and plan: The patient does not have an obstruction per small bowel follow-through. Contrast on his small bowel follow-through and on follow-up films this morning reveal flow into the colon. He does have a possible "narrowing" noted in the right upper quadrant that could be consistent with small bowel mucosal inflammation. Continue to slowly advance diet as tolerated Ongoing close follow-up Likely gastroenterology consultation Current Visit: Yes (3) Renal insufficiency Status: Acute Current Visit: No (4) Elevated troponin Status: Acute Current Visit: Yes (5) History of colon cancer Status: Acute Current Visit: Yes
--- NOTE | 2019-08-18 09:05 | Progress Note ---
Internal Medicine - PN: Subj *Date: 08/18/19 *Time: 08:59 Interval history: Patient sitting in bed states he is had a couple bowel movements today that are "yellow with lemon and sticks to the side of the commode. States he is passing gas Exam Vital signs and Labs for Last 24 Hours: Temp Pulse Resp BP Pulse Ox 97.9 F 73 18 174/72 H 95 08/18/19 04:00 08/18/19 04:00 08/18/19 04:00 08/18/19 04:00 08/18/19 04:00 Laboratory Results - last 24 hr 08/17/19 14:20: POC Glucose 102 08/17/19 16:15: POC Glucose 112 H 08/17/19 20:38: POC Glucose 123 H 08/18/19 01:12: POC Glucose 125 H 08/18/19 05:19: POC Glucose 143 H 08/18/19 06:08: WBC 4.4 L D, RBC 4.01 L, Hgb 12.0 L, Hct 36.9 L, MCV 91.9, MCH 29.9, MCHC 32.5, RDW 14.1, Plt Count 173, MPV 8.6, Neut % (Auto) 65.6, Lymph % (Auto) 23.5, [place] % (Auto) 9.2, Eos % (Auto) 1.2, Baso % (Auto) 0.4, Neut # (Auto) 2.9, Lymph # (Auto) 1.0, [place] # (Auto) 0.4, Eos # (Auto) 0.1, Baso # (Auto) 0.0 08/18/19 06:08: Sodium 140, Potassium 3.1 L, Chloride 106, Carbon Dioxide 24, Anion Gap 13.1, BUN 9 D, Creatinine 0.96 D, Estimated Creat Clear 82, Estimated GFR 75, Est GFR ( Amer) 91 D, Glucose 152 H, Calcium 7.8 L I & O for Last 24 hours: Intake & Output 08/15/19 08/16/19 08/17/19 08/18/19 11:59 11:59 11:59 11:59 Intake Total 1616 / 1616 2438 / 2438 Output Total 900 / 900 Balance 716 / 716 2438 / 2438 Weight 232 lb 9 oz 231 lb 8 oz 228 lb Microbiology Reports for the Last 24 Hours: Microbiology 08/16/19 08:19 Blood Blood Culture - Preliminary NO GROWTH AFTER 48 HOURS 08/16/19 08:19 Blood Blood Culture - Preliminary NO GROWTH AFTER 48 HOURS - Constitutional no acute distress - *Routine HEENT Exam Head: Present: normocephalic Eye: Present: PERRL ENT: Present: mucous membranes moist - *Routine Neck Exam Present: supple. Absent: lymphadenopathy - *Routine Respiratory Exam Present: CTA bilaterally - *Routine Cardiovascular Exam Present: RRR - *Routine Abdominal Exam Present: soft. Absent: tenderness, distended Comments: Hyperactive bowel sounds - *Routine Extremities Exam Present: full ROM. Absent: cyanosis, clubbing, edema - *Routine Skin Exam Present: intact, warm. Absent: rash - *Routine Neurological Exam Present: alert, oriented X3 - Routine Psychiatric Exam Present: normal affect Assessment and Plan (1) Hypoglycemia Current visit: Yes Status: Acute Category: Medical Code(s): E16.2 - Hypoglycemia, unspecified (2) SBO (small bowel obstruction) Current visit: Yes Status: Acute Category: Medical Code(s): K56.609 - Unspecified intestinal obstruction, unspecified as to partial versus complete obstruction (3) Renal insufficiency Current visit: No Status: Acute Category: Medical Code(s): N28.9 - Disorder of kidney and ureter, unspecified (4) Elevated troponin Current visit: Yes Status: Acute Category: Medical Code(s): R79.89 - Other specified abnormal findings of blood chemistry (5) History of colon cancer Current visit: Yes Status: Acute Category: Medical Code(s): Z85.038 - Personal history of other malignant neoplasm of large intestine (6) Pleural effusion, not elsewhere classified Current visit: Yes Status: Acute Category: Medical Code(s): J90 - Pleural effusion, not elsewhere classified - Assessment and plan all Dx Assessment and Plan for all problems:: Rounded with Dr. gO all orders per Earle Bui to see patient Diarrhea panel PT OT shay
--- NOTE | 2019-08-18 13:34 | Procedure Note ---
[facility] Procedure Note Procedure Note:: Gastroenterology Consultation Date of Service-August 18, 2019 History of Present Illness: Mr. Gramajo is an 84-year-old gentleman who is here for after being admitted with partial small bowel obstruction. He states that this began about a month ago after his "double flu" shot. He developed pain starting in the left upper quadrant but radiating into the right upper quadrant. He has some nausea and a 20 pound weight loss. He has had vomiting. He also has noted a change in bowel habits with liquid or loose stools. 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 He has been seen by Dr. Black Pena. The patient has had colon cancer twice and his last surgery was 3 to 4 years ago. The patient reports no melena or hematochezia. He does report early satiety. Past Medical History: 1. CASHD 2. Hypertension 3. Hyperlipidemia 4. Type 2 diabetes mellitus 5. Colon cancer x2 Past Surgical History: 1. Appendectomy 2. Right hemicolectomy 3. Sigmoid colectomy/LAR 4. Cardiac surgery Medications: 1. Amlodipine 2. Atorvastatin 3. Lisinopril 4. Baby aspirin 5. Fenofibrate 6. Humulin insulin 7. Lasix 8. Metoprolol 9. Lansoprazole ALLERGIES: No known drug allergies Social History: The patient lives in [place]. He is retired. He is . He reports no tobacco or alcohol Family History: See chart Review of Systems: See chart Physical Examination: Gen.: The patient is a well-developed well-nourished elderly male individual in no acute distress HEENT: Normocephalic/atraumatic extraocular movements are intact anicteric Neck: Supple no lymphadenopathy Chest: Clear to auscultation Cardiovascular: Regular rate and rhythm Abdomen: Normoactive bowel sounds soft, very minimal distention with minor tenderness, no rebound or guarding, no masses, no hepatosplenomegaly Extremities: No edema Labs: Hemoglobin 13, hematocrit 39.5, AST 52, albumin 2.7 Radiology: CT scan of the abdomen stricturing of the mid small bowel (several centimeters) with some associated inflammatory changes Impression/Plan: 1. 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 There appears to be some surrounding/adjacent thickened mucosa. I do not see any surrounding fat stranding. I agree that this does not appear to be small bowel obstruction from adhesions or hernia entrapment. I am concerned about location and prior large bowel malignancy. Intraluminal metastasis would be highly unlikely but the patient has had colon cancer twice. There is slightly increased risk of small intestine cancer in persons that have had cancer of the large intestine. This would be a much more likely etiology than a metastatic colon cancer which does not metastasize intraluminally like this. There is no evidence of any lymphadenopathy or hepatic metastasis. Presently, I would obtain CEA level and Hemoccult testing. This area of stricturing is not within the reach of the colonoscope either per oral or rectal route. Small bowel capsule enteroscopy would be a potential diagnostic method but with this stricture, there would most likely be retention of the capsule which would not pass beyond the stricture. I would like to discuss this with general surgery. I would probably give the patient a trial of corticosteroids (prednisone) for inflammatory stricture. If the patient has resolution of symptoms, no further diagnostic testing would be necessitated because of his age and probable benign etiology. However, if the patient fails to advance with diet and continues to have persistent abdominal pain or with signs of continued obstruction, I would consider capsule endoscopy with the thought that this would give us a probable etiology prior to corrective surgery. Double-balloon enteroscopy is available regionally but not in the [facility] [place] (available in [facility] and [facility]).
[2019-08-19 07:20] LABS: Basophils % 0.2 % (0.1-2.0); Eosinophils % 0.2 % (0.1-12.0); Hematocrit 38.5 % (42.0-52.0); Hemoglobin 12.5 g/dL (14.1-18.0); Lymphocytes # 1.3 K/mm3 (0.7-4.5); Lymphocytes % 21.7 % (10-50); Mean Corpuscular HGB Conc 32.5 g/dL (31.8-35.4); Mean Corpuscular Volume 91.7 fl (80-94); Mean Platelet Volume 8.4 fl (7.4-10.4); Monocytes # 0.3 K/mm3 (0.1-1.0); Monocytes % 4.2 % (1.7-9.3); Neutrophils # 4.3 K/mm3 (1.8-7.8); Neutrophils % 73.8 % (37.0-80.0); Platelet Count 198 K/mm3 (142-424); Red Cell Distribution Width 14.1 % (11.5-17.5); White Blood Count 5.8 K/mm3 (4.8-10.8)
[2019-08-19 07:23] LABS: Anion Gap 15.6 mEq/L (5-15); Calcium 8.2 mg/dL (8.5-10.1)
--- NOTE | 2019-08-19 09:23 | Progress Note ---
Subjective Patient reports: feels better Narrative: Patient states that his bowels moved several times yesterday. He is taking a low residue diet without issue at this point. Exam Vital signs and Labs for Last 24 Hours: Temp Pulse Resp BP Pulse Ox 97.9 F 78 18 131/69 95 08/19/19 08:00 08/19/19 08:00 08/19/19 08:00 08/19/19 08:00 08/19/19 08:00 Laboratory Results - last 24 hr 08/18/19 09:12: POC Glucose 134 H 08/18/19 11:30: Stl Aeromonas (PCR) Not detected, Stl C. cayetanensis PCR Not detected, Stool Rotavirus (PCR) Not detected, Stl Adenov F 40/41 PCR Not detected, Stool Astrovirus (PCR) Not detected, Stool Campylobacter PCR Not detected, Stl C.difficile Tox PCR Not detected, Stool Cryptosporidium PCR Not detected, Stl E.coli Shiga Tox PCR Not detected, Stool E coli O157 PCR Not detected, Stl Enterotoxigenic E PCR Not detected, Stool EPEC (PCR) Not detected, Stool EAEC (PCR) Not detected, Stl E. histolytica PCR Not detected, Stool Giardia Lamblia PCR Not detected, Stool Salmonella PCR Not detected, Stool Neil virus (PCR) Not detected, Stl P. shigelloides PCR Not detected, Stl Shigella/EIEC PCR Not detected, St Y.enterocolitica PCR Not detected, Stool Vibrio (PCR) Not detected, Stl Vibrio cholerae PCR Not detected, Stl Norovirus GI/GII PCR Not detected 08/18/19 13:01: POC Glucose 136 H 08/18/19 16:27: POC Glucose 184 H 08/18/19 21:40: POC Glucose 198 H 08/19/19 01:18: POC Glucose 192 H 08/19/19 06:55: WBC 5.8 D, RBC 4.20 L, Hgb 12.5 L, Hct 38.5 L, MCV 91.7, MCH 29.8, MCHC 32.5, RDW 14.1, Plt Count 198, MPV 8.4, Neut % (Auto) 73.8, Lymph % (Auto) 21.7, [place] % (Auto) 4.2, Eos % (Auto) 0.2, Baso % (Auto) 0.2, Neut # (Auto) 4.3, Lymph # (Auto) 1.3, [place] # (Auto) 0.3, Eos # (Auto) 0.0, Baso # (Auto) 0.0 08/19/19 06:55: Sodium 139, Potassium 3.6, Chloride 104, Carbon Dioxide 23, Anion Gap 15.6 H, BUN 10, Creatinine 0.91, Estimated Creat Clear 81, Estimated GFR 80, Est GFR ( Amer) 96, Glucose 189 H, Calcium 8.2 L I & O for Last 24 hours: Intake & Output 08/16/19 08/17/19 08/18/19 08/19/19 11:59 11:59 11:59 11:59 Intake Total 1616 / 1616 2448 / 2448 978 / 978 Output Total 900 / 900 350 / 350 Balance 716 / 716 2098 / 2098 978 / 978 Weight 232 lb 9 oz 231 lb 8 oz 228 lb 226 lb 14.4 oz Microbiology Reports for the Last 24 Hours: Microbiology 08/16/19 08:19 Blood Blood Culture - Preliminary NO GROWTH AFTER 48 HOURS 08/16/19 08:19 Blood Blood Culture - Preliminary NO GROWTH AFTER 48 HOURS - *Routine Abdominal Exam Present: soft, normoactive bowel sounds. Absent: tenderness Progress Note: A&P (1) Hypoglycemia Status: Acute Current Visit: Yes (2) SBO (small bowel obstruction) Status: Acute Current Visit: Yes (3) Renal insufficiency Status: Acute Current Visit: No (4) Elevated troponin Status: Acute Current Visit: Yes (5) History of colon cancer Status: Acute Current Visit: Yes (6) Pleural effusion, not elsewhere classified Status: Acute Current Visit: Yes Assessment and Plan for All Diagnoses:: Continue nonoperative management at this time for resolving partial small bowel obstruction with etiology unknown (inflammatory versus infectious versus neoplastic). Patient has been started on steroids. If he does improve with nonoperative management will need close outpatient follow-up to evaluate for resolution of the stricture.
--- NOTE | 2019-08-19 10:02 | Progress Note ---
Internal Medicine - PN: Subj *Date: 08/19/19 *Time: 09:56 Interval history: doing better - tolerating diet Exam Vital signs and Labs for Last 24 Hours: Temp Pulse Resp BP Pulse Ox 97.9 F 78 18 131/69 95 08/19/19 08:00 08/19/19 08:00 08/19/19 08:00 08/19/19 08:00 08/19/19 08:00 Laboratory Results - last 24 hr 08/18/19 09:12: POC Glucose 134 H 08/18/19 11:30: Stl Aeromonas (PCR) Not detected, Stl C. cayetanensis PCR Not detected, Stool Rotavirus (PCR) Not detected, Stl Adenov F 40/41 PCR Not detected, Stool Astrovirus (PCR) Not detected, Stool Campylobacter PCR Not detected, Stl C.difficile Tox PCR Not detected, Stool Cryptosporidium PCR Not detected, Stl E.coli Shiga Tox PCR Not detected, Stool E coli O157 PCR Not detected, Stl Enterotoxigenic E PCR Not detected, Stool EPEC (PCR) Not detected, Stool EAEC (PCR) Not detected, Stl E. histolytica PCR Not detected, Stool Giardia Lamblia PCR Not detected, Stool Salmonella PCR Not detected, Stool Sapovirus (PCR) Not detected, Stl P. shigelloides PCR Not detected, Stl Shigella/EIEC PCR Not detected, St Y.enterocolitica PCR Not detected, Stool Vibrio (PCR) Not detected, Stl Vibrio cholerae PCR Not detected, Stl Norovirus GI/GII PCR Not detected 08/18/19 13:01: POC Glucose 136 H 08/18/19 16:27: POC Glucose 184 H 08/18/19 21:40: POC Glucose 198 H 08/19/19 01:18: POC Glucose 192 H 08/19/19 06:55: WBC 5.8 D, RBC 4.20 L, Hgb 12.5 L, Hct 38.5 L, MCV 91.7, MCH 29.8, MCHC 32.5, RDW 14.1, Plt Count 198, MPV 8.4, Neut % (Auto) 73.8, Lymph % (Auto) 21.7, [place] % (Auto) 4.2, Eos % (Auto) 0.2, Baso % (Auto) 0.2, Neut # (Auto) 4.3, Lymph # (Auto) 1.3, [place] # (Auto) 0.3, Eos # (Auto) 0.0, Baso # (Auto) 0.0 08/19/19 06:55: Sodium 139, Potassium 3.6, Chloride 104, Carbon Dioxide 23, Anion Gap 15.6 H, BUN 10, Creatinine 0.91, Estimated Creat Clear 81, Estimated GFR 80, Est GFR ( Amer) 96, Glucose 189 H, Calcium 8.2 L I & O for Last 24 hours: Intake & Output 08/16/19 08/17/19 08/18/19 08/19/19 11:59 11:59 11:59 11:59 Intake Total 1616 / 1616 2448 / 2448 978 / 978 Output Total 900 / 900 350 / 350 Balance 716 / 716 2098 / 2098 978 / 978 Weight 232 lb 9 oz 231 lb 8 oz 228 lb 226 lb 14.4 oz Microbiology Reports for the Last 24 Hours: Microbiology 08/16/19 08:19 Blood Blood Culture - Preliminary NO GROWTH AFTER 48 HOURS 08/16/19 08:19 Blood Blood Culture - Preliminary NO GROWTH AFTER 48 HOURS - Constitutional no acute distress - *Routine HEENT Exam Head: Present: normocephalic Eye: Present: EOMI, PERRL ENT: Present: mucous membranes dry - *Routine Neck Exam Absent: JVD - *Routine Respiratory Exam Present: CTA bilaterally - *Routine Cardiovascular Exam Present: RRR, murmur - *Routine Abdominal Exam Present: soft - *Routine Extremities Exam Absent: calf tenderness - *Routine Skin Exam Present: intact - *Routine Neurological Exam Present: alert, oriented X3, CN II-XII intact - Routine Psychiatric Exam Present: normal affect Assessment and Plan (1) Hypoglycemia Current visit: Yes Status: Acute Category: Medical Code(s): E16.2 - Hypoglycemia, unspecified (2) SBO (small bowel obstruction) Current visit: Yes Status: Acute Category: Medical Code(s): K56.609 - Unspecified intestinal obstruction, unspecified as to partial versus complete obstruction (3) Renal insufficiency Current visit: No Status: Acute Category: Medical Code(s): N28.9 - Disorder of kidney and ureter, unspecified (4) Elevated troponin Current visit: Yes Status: Acute Category: Medical Code(s): R79.89 - Other specified abnormal findings of blood chemistry (5) History of colon cancer Current visit: Yes Status: Acute Category: Medical Code(s): Z85.038 - Personal history of other malignant neoplasm of large intestine (6) Pleural effusion, not elsewhere classified Current visit: Yes Status: Acute Category: Medical Code(s): J90 - Pleural effusion, not elsewhere classified
[2019-08-20 07:12] LABS: Basophils % 0.1 % (0.1-2.0); Eosinophils % 0.1 % (0.1-12.0); Hematocrit 37.9 % (42.0-52.0); Hemoglobin 12.4 g/dL (14.1-18.0); Lymphocytes # 1.2 K/mm3 (0.7-4.5); Lymphocytes % 12.5 % (10-50); Mean Corpuscular HGB Conc 32.8 g/dL (31.8-35.4); Mean Platelet Volume 8.6 fl (7.4-10.4); Monocytes # 0.4 K/mm3 (0.1-1.0); Monocytes % 4.3 % (1.7-9.3); Neutrophils # 8.2 K/mm3 (1.8-7.8); Platelet Count 216 K/mm3 (142-424); Red Blood Count 4.16 M/mm3 (4.60-6.20); Red Cell Distribution Width 14.3 % (11.5-17.5); White Blood Count 9.9 K/mm3 (4.8-10.8)
[2019-08-20 07:21] LABS: Anion Gap 12.6 mEq/L (5-15); Calcium 8.4 mg/dL (8.5-10.1)
--- NOTE | 2019-08-20 08:33 | Progress Note ---
Subjective Narrative: Patient states that his abdomen is "sore" after he had eaten breakfast consisting of eggs and rice crispy cereal. He denies any nausea. Exam Vital signs and Labs for Last 24 Hours: Temp Pulse Resp BP Pulse Ox 97.8 F 64 18 170/68 H 95 08/20/19 07:58 08/20/19 07:58 08/20/19 07:58 08/20/19 07:58 08/20/19 07:58 Laboratory Results - last 24 hr 08/18/19 06:08: Carcinoembryonic Ag 1.6 08/18/19 06:08: Iron 34 L, TIBC 213 L, Iron Saturation 16, Unsaturated IBC 179 08/19/19 06:09: POC Glucose 168 H 08/19/19 11:36: POC Glucose 199 H 08/19/19 15:23: POC Glucose 254 H 08/19/19 17:34: POC Glucose 250 H 08/19/19 21:15: POC Glucose 276 H 08/20/19 02:54: POC Glucose 204 H 08/20/19 05:43: POC Glucose 214 H 08/20/19 06:40: WBC 9.9 D, RBC 4.16 L, Hgb 12.4 L, Hct 37.9 L, MCV 91.0, MCH 29.9, MCHC 32.8, RDW 14.3, Plt Count 216, MPV 8.6, Neut % (Auto) 83.0 H, Lymph % (Auto) 12.5, [place] % (Auto) 4.3, Eos % (Auto) 0.1, Baso % (Auto) 0.1, Neut # (Auto) 8.2 H, Lymph # (Auto) 1.2, [place] # (Auto) 0.4, Eos # (Auto) 0.0, Baso # (Auto) 0.0 08/20/19 06:40: Sodium 138, Potassium 3.6, Chloride 104, Carbon Dioxide 25, Anion Gap 12.6, BUN 18 D, Creatinine 0.93, Estimated Creat Clear 83, Estimated GFR 78, Est GFR ( Amer) 94, Glucose 206 H, Calcium 8.4 L I & O for Last 24 hours: Intake & Output 08/17/19 08/18/19 08/19/19 08/20/19 11:59 11:59 11:59 11:59 Intake Total 1616 / 1616 2448 / 2448 978 / 978 1849 / 1849 Output Total 900 / 900 350 / 350 750 / 750 Balance 716 / 716 2098 / 2098 978 / 978 1099 / 1099 Weight 231 lb 8 oz 228 lb 226 lb 14.4 oz 230 lb 9 oz - *Routine Abdominal Exam Comments: On examination his abdomen is slightly distended. He has somewhat hyperactive bowel sounds. No appreciable tenderness. Progress Note: A&P (1) Hypoglycemia Status: Acute Current Visit: Yes (2) SBO (small bowel obstruction) Status: Acute Current Visit: Yes (3) Renal insufficiency Status: Acute Current Visit: No (4) Elevated troponin Status: Acute Current Visit: Yes (5) History of colon cancer Status: Acute Current Visit: Yes (6) Pleural effusion, not elsewhere classified Status: Acute Current Visit: Yes Assessment and Plan for All Diagnoses:: At this point I will decrease his diet to full liquids due to increasing symptomatology with intake of low residue diet. If his symptoms remain progressively refractory to nonoperative management he could require laparotomy with possible bowel resection.
--- NOTE | 2019-08-20 09:26 | Progress Note ---
Internal Medicine - PN: Subj *Date: 08/20/19 *Time: 09:25 Interval history: inc pain after meal - surg dec diet - Exam Vital signs and Labs for Last 24 Hours: Temp Pulse Resp BP Pulse Ox 97.8 F 64 18 170/68 H 95 08/20/19 07:58 08/20/19 07:58 08/20/19 07:58 08/20/19 07:58 08/20/19 07:58 Laboratory Results - last 24 hr 08/18/19 06:08: Carcinoembryonic Ag 1.6 08/18/19 06:08: Iron 34 L, TIBC 213 L, Iron Saturation 16, Unsaturated IBC 179 08/19/19 06:09: POC Glucose 168 H 08/19/19 11:36: POC Glucose 199 H 08/19/19 15:23: POC Glucose 254 H 08/19/19 17:34: POC Glucose 250 H 08/19/19 21:15: POC Glucose 276 H 08/20/19 02:54: POC Glucose 204 H 08/20/19 05:43: POC Glucose 214 H 08/20/19 06:40: WBC 9.9 D, RBC 4.16 L, Hgb 12.4 L, Hct 37.9 L, MCV 91.0, MCH 29.9, MCHC 32.8, RDW 14.3, Plt Count 216, MPV 8.6, Neut % (Auto) 83.0 H, Lymph % (Auto) 12.5, [place] % (Auto) 4.3, Eos % (Auto) 0.1, Baso % (Auto) 0.1, Neut # (Auto) 8.2 H, Lymph # (Auto) 1.2, [place] # (Auto) 0.4, Eos # (Auto) 0.0, Baso # (Auto) 0.0 08/20/19 06:40: Sodium 138, Potassium 3.6, Chloride 104, Carbon Dioxide 25, Anion Gap 12.6, BUN 18 D, Creatinine 0.93, Estimated Creat Clear 83, Estimated GFR 78, Est GFR ( Amer) 94, Glucose 206 H, Calcium 8.4 L I & O for Last 24 hours: Intake & Output 08/17/19 08/18/19 08/19/19 08/20/19 11:59 11:59 11:59 11:59 Intake Total 1616 / 1616 2448 / 2448 978 / 978 1849 / 1849 Output Total 900 / 900 350 / 350 1450 / 1450 Balance 716 / 716 2098 / 2098 978 / 978 399 / 399 Weight 231 lb 8 oz 228 lb 226 lb 14.4 oz 230 lb 9 oz - Constitutional no acute distress - *Routine HEENT Exam Head: Present: normocephalic Eye: Present: EOMI, PERRL ENT: Present: mucous membranes dry - *Routine Neck Exam Absent: JVD - *Routine Respiratory Exam Absent: respiratory distress - *Routine Cardiovascular Exam Present: RRR, murmur - *Routine Abdominal Exam Present: soft - *Routine Extremities Exam Present: edema. Absent: calf tenderness - *Routine Skin Exam Present: intact - *Routine Neurological Exam Present: alert, oriented X3, CN II-XII intact - Routine Psychiatric Exam Present: normal affect Assessment and Plan (1) Hypoglycemia Current visit: Yes Status: Acute Category: Medical Code(s): E16.2 - Hypoglycemia, unspecified (2) SBO (small bowel obstruction) Current visit: Yes Status: Acute Category: Medical Code(s): K56.609 - Unspecified intestinal obstruction, unspecified as to partial versus complete obstruction (3) Renal insufficiency Current visit: No Status: Acute Category: Medical Code(s): N28.9 - Disorder of kidney and ureter, unspecified (4) Elevated troponin Current visit: Yes Status: Acute Category: Medical Code(s): R79.89 - Other specified abnormal findings of blood chemistry (5) History of colon cancer Current visit: Yes Status: Acute Category: Medical Code(s): Z85.038 - Personal history of other malignant neoplasm of large intestine (6) Pleural effusion, not elsewhere classified Current visit: Yes Status: Acute Category: Medical Code(s): J90 - Pleural effusion, not elsewhere classified
--- NOTE | 2019-08-21 07:20 | Progress Note ---
Subjective Narrative: Patient states that his abdomen feels better this morning than it did yesterday morning after eating breakfast. He did have a bowel movement yesterday. He is concerned about his blood sugars. He has had no nausea. Exam Vital signs and Labs for Last 24 Hours: Temp Pulse Resp BP Pulse Ox 97.8 F 62 18 151/79 H 94 L 08/21/19 04:00 08/21/19 04:00 08/21/19 04:00 08/21/19 04:00 08/21/19 04:00 Laboratory Results - last 24 hr 08/20/19 06:40: WBC 9.9 D, RBC 4.16 L, Hgb 12.4 L, Hct 37.9 L, MCV 91.0, MCH 29.9, MCHC 32.8, RDW 14.3, Plt Count 216, MPV 8.6, Neut % (Auto) 83.0 H, Lymph % (Auto) 12.5, [place] % (Auto) 4.3, Eos % (Auto) 0.1, Baso % (Auto) 0.1, Neut # (Auto) 8.2 H, Lymph # (Auto) 1.2, [place] # (Auto) 0.4, Eos # (Auto) 0.0, Baso # (Auto) 0.0 08/20/19 06:40: Sodium 138, Potassium 3.6, Chloride 104, Carbon Dioxide 25, Anion Gap 12.6, BUN 18 D, Creatinine 0.93, Estimated Creat Clear 83, Estimated GFR 78, Est GFR ( Amer) 94, Glucose 206 H, Calcium 8.4 L 08/20/19 11:27: POC Glucose 267 H 08/20/19 14:07: POC Glucose 259 H 08/20/19 16:16: POC Glucose 220 H 08/20/19 17:57: POC Glucose 366 H* 08/20/19 20:43: POC Glucose 217 H 08/21/19 05:46: POC Glucose 198 H I & O for Last 24 hours: Intake & Output 08/18/19 08/19/19 08/20/19 08/21/19 11:59 11:59 11:59 11:59 Intake Total 2448 / 2448 978 / 978 1849 / 1849 1469 / 1469 Output Total 350 / 350 1450 / 1450 850 / 850 Balance 209 / 2097 978 / 978 399 / 399 619 / 619 Weight 228 lb 226 lb 14.4 oz 230 lb 9 oz 232 lb 8 oz - *Routine Abdominal Exam Comments: Multiple surgical scars. Abdomen is soft. No appreciable tenderness. Normal bowel sounds. Progress Note: A&P (1) Hypoglycemia Status: Acute Current Visit: Yes (2) SBO (small bowel obstruction) Status: Acute Current Visit: Yes (3) Renal insufficiency Status: Acute Current Visit: No (4) Elevated troponin Status: Acute Current Visit: Yes (5) History of colon cancer Status: Acute Current Visit: Yes (6) Pleural effusion, not elsewhere classified Status: Acute Current Visit: Yes Assessment and Plan for All Diagnoses:: Plan to check a follow-up acute abdominal series today. If patient tolerates full liquid and acute abdominal series shows improvement may be able to advance diet. However, if he has appreciable evidence of bowel obstruction on acute abdominal series and/or develops progressive symptoms of bowel obstruction may require operative intervention.
--- NOTE | 2019-08-21 13:20 | Progress Note ---
Internal Medicine - PN: Subj *Date: 08/21/19 *Time: 13:17 Interval history: pt with still abd pain and dec po intake - has seen surg and give trial of diet Exam Vital signs and Labs for Last 24 Hours: Temp Pulse Resp BP Pulse Ox 97.3 F L 59 L 18 185/78 H 96 08/21/19 07:45 08/21/19 07:45 08/21/19 07:45 08/21/19 07:45 08/21/19 07:45 Laboratory Results - last 24 hr 08/20/19 14:07: POC Glucose 259 H 08/20/19 16:16: POC Glucose 220 H 08/20/19 17:57: POC Glucose 366 H* 08/20/19 20:43: POC Glucose 217 H 08/21/19 05:46: POC Glucose 198 H 08/21/19 10:44: POC Glucose 233 H I & O for Last 24 hours: Intake & Output 08/19/19 08/20/19 08/21/19 08/22/19 11:59 11:59 11:59 11:59 Intake Total 978 / 978 1849 / 1849 1589 / 1589 Output Total 1450 / 1450 850 / 850 Balance 978 / 978 399 / 399 739 / 739 Weight 226 lb 14.4 oz 230 lb 9 oz 232 lb 8 oz Microbiology Reports for the Last 24 Hours: Microbiology 08/16/19 08:19 Blood Blood Culture - Final NO GROWTH AFTER 5 DAYS 08/16/19 08:19 Blood Blood Culture - Final NO GROWTH AFTER 5 DAYS - Constitutional no acute distress - *Routine HEENT Exam Head: Present: normocephalic Eye: Present: EOMI, PERRL ENT: Present: mucous membranes dry - *Routine Neck Exam Present: supple - *Routine Respiratory Exam Absent: respiratory distress - *Routine Cardiovascular Exam Present: RRR - *Routine Abdominal Exam Present: soft, tenderness - *Routine Extremities Exam Absent: calf tenderness - *Routine Skin Exam Present: intact - *Routine Neurological Exam Present: alert, CN II-XII intact - Routine Psychiatric Exam Present: normal affect Assessment and Plan (1) Hypoglycemia Current visit: Yes Status: Acute Category: Medical Code(s): E16.2 - Hypoglycemia, unspecified (2) SBO (small bowel obstruction) Current visit: Yes Status: Acute Category: Medical Code(s): K56.609 - Unspecified intestinal obstruction, unspecified as to partial versus complete obstruction (3) Renal insufficiency Current visit: No Status: Acute Category: Medical Code(s): N28.9 - Disorder of kidney and ureter, unspecified (4) Elevated troponin Current visit: Yes Status: Acute Category: Medical Code(s): R79.89 - Other specified abnormal findings of blood chemistry (5) History of colon cancer Current visit: Yes Status: Acute Category: Medical Code(s): Z85.038 - Personal history of other malignant neoplasm of large intestine (6) Pleural effusion, not elsewhere classified Current visit: Yes Status: Acute Category: Medical Code(s): J90 - Pleural effusion, not elsewhere classified
--- NOTE | 2019-08-21 15:20 | Progress Note ---
Subjective Narrative: Patient states that this afternoon his abdomen feels "pretty good". He denies any appreciable pain. However, he did have a single pain shot. His acute abdominal series today showed improvement with findings of "subtle partial small bowel obstruction". He states that subsequently after his acute abdominal series he has moved his bowels twice. He denies any nausea. Exam Vital signs and Labs for Last 24 Hours: Temp Pulse Resp BP Pulse Ox 97.3 F L 59 L 18 185/78 H 96 08/21/19 07:45 08/21/19 07:45 08/21/19 07:45 08/21/19 07:45 08/21/19 07:45 Laboratory Results - last 24 hr 08/20/19 16:16: POC Glucose 220 H 08/20/19 17:57: POC Glucose 366 H* 08/20/19 20:43: POC Glucose 217 H 08/21/19 05:46: POC Glucose 198 H 08/21/19 10:44: POC Glucose 233 H I & O for Last 24 hours: Intake & Output 08/19/19 08/20/19 08/21/19 08/22/19 11:59 11:59 11:59 11:59 Intake Total 978 / 978 1849 / 1849 1589 / 1589 Output Total 1450 / 1450 850 / 850 Balance 978 / 978 399 / 399 739 / 739 Weight 226 lb 14.4 oz 230 lb 9 oz 232 lb 8 oz Microbiology Reports for the Last 24 Hours: Microbiology 08/16/19 08:19 Blood Blood Culture - Final NO GROWTH AFTER 5 DAYS 08/16/19 08:19 Blood Blood Culture - Final NO GROWTH AFTER 5 DAYS - *Routine Abdominal Exam Present: soft, normoactive bowel sounds Comments: His abdomen is soft and nontender with normal bowel sounds. Progress Note: A&P (1) Hypoglycemia Status: Acute Current Visit: Yes (2) SBO (small bowel obstruction) Status: Acute Current Visit: Yes (3) Renal insufficiency Status: Acute Current Visit: No (4) Elevated troponin Status: Acute Current Visit: Yes (5) History of colon cancer Status: Acute Current Visit: Yes (6) Pleural effusion, not elsewhere classified Status: Acute Current Visit: Yes Assessment and Plan for All Diagnoses:: Continue to limit to full liquids at this point. Reassess tomorrow morning clinically with repeat acute abdominal series. If continued improvement may be able to advance diet carefully and judiciously at that time.
--- NOTE | 2019-08-22 08:56 | Progress Note ---
Subjective Narrative: Patient states that he had a "large breakfast". He is without complaints. No nausea. Passing "lots of gas". No additional bowel movements since he had two yesterday. Exam Vital signs and Labs for Last 24 Hours: Temp Pulse Resp BP Pulse Ox 97.3 F L 63 19 179/78 H 96 08/22/19 07:51 08/22/19 07:51 08/22/19 07:51 08/22/19 07:51 08/22/19 08:00 Laboratory Results - last 24 hr 08/21/19 10:44: POC Glucose 233 H 08/21/19 16:08: POC Glucose 246 H 08/21/19 20:30: POC Glucose 265 H 08/22/19 05:44: POC Glucose 182 H I & O for Last 24 hours: Intake & Output 08/19/19 08/20/19 08/21/19 08/22/19 11:59 11:59 11:59 11:59 Intake Total 978 / 978 1849 / 1849 1589 / 1589 1744 / 1744 Output Total 1450 / 1450 850 / 850 1650 / 1650 Balance 978 / 978 399 / 399 739 / 739 94 / 94 Weight 226 lb 14.4 oz 230 lb 9 oz 232 lb 8 oz 231 lb 9 oz Microbiology Reports for the Last 24 Hours: Microbiology 08/16/19 08:19 Blood Blood Culture - Final NO GROWTH AFTER 5 DAYS 08/16/19 08:19 Blood Blood Culture - Final NO GROWTH AFTER 5 DAYS - *Routine Abdominal Exam Present: soft, normoactive bowel sounds. Absent: tenderness Progress Note: A&P (1) Hypoglycemia Status: Acute Current Visit: Yes (2) SBO (small bowel obstruction) Status: Acute Assessment and plan: Clinically stable with tolerance of full liquids. We will plan to recheck an acute abdominal series today. I discussed with the patient potential discharge on a limited diet with early outpatient follow-up however he has significant reservations with this as a potential plan. If his acute abdominal series shows continued improvement may be able to advance to a bland low residue diet. Current Visit: Yes (3) Renal insufficiency Status: Acute Current Visit: No (4) Elevated troponin Status: Acute Current Visit: Yes (5) History of colon cancer Status: Acute Current Visit: Yes (6) Pleural effusion, not elsewhere classified Status: Acute Current Visit: Yes
--- NOTE | 2019-08-22 10:05 | Progress Note ---
Internal Medicine - PN: Subj *Date: 08/22/19 *Time: 10:03 Interval history: doing better but still with rt sided abd pain - discussed with dr mukherjee Exam Vital signs and Labs for Last 24 Hours: Temp Pulse Resp BP Pulse Ox 97.3 F L 63 19 179/78 H 96 08/22/19 07:51 08/22/19 07:51 08/22/19 07:51 08/22/19 07:51 08/22/19 08:00 Laboratory Results - last 24 hr 08/21/19 10:44: POC Glucose 233 H 08/21/19 16:08: POC Glucose 246 H 08/21/19 20:30: POC Glucose 265 H 08/22/19 05:44: POC Glucose 182 H I & O for Last 24 hours: Intake & Output 08/19/19 08/20/19 08/21/19 08/22/19 11:59 11:59 11:59 11:59 Intake Total 978 / 978 1849 / 1849 1589 / 1589 1744 / 1744 Output Total 1450 / 1450 850 / 850 1650 / 1650 Balance 978 / 978 399 / 399 739 / 739 94 / 94 Weight 226 lb 14.4 oz 230 lb 9 oz 232 lb 8 oz 231 lb 9 oz Microbiology Reports for the Last 24 Hours: Microbiology 08/16/19 08:19 Blood Blood Culture - Final NO GROWTH AFTER 5 DAYS 08/16/19 08:19 Blood Blood Culture - Final NO GROWTH AFTER 5 DAYS - Constitutional no acute distress - *Routine HEENT Exam Head: Present: normocephalic Eye: Present: EOMI, PERRL ENT: Present: mucous membranes dry - *Routine Neck Exam Absent: JVD - *Routine Respiratory Exam Absent: respiratory distress - *Routine Cardiovascular Exam Present: RRR, murmur - *Routine Abdominal Exam Present: soft, tenderness. Absent: distended, rebound, guarding - *Routine Extremities Exam Absent: calf tenderness - *Routine Skin Exam Present: intact - *Routine Neurological Exam Present: alert, oriented X3, CN II-XII intact - Routine Psychiatric Exam Present: normal affect Assessment and Plan (1) Hypoglycemia Current visit: Yes Status: Acute Category: Medical Code(s): E16.2 - Hypoglycemia, unspecified (2) SBO (small bowel obstruction) Current visit: Yes Status: Acute Category: Medical Code(s): K56.609 - Unspecified intestinal obstruction, unspecified as to partial versus complete obstruction (3) Renal insufficiency Current visit: No Status: Acute Category: Medical Code(s): N28.9 - Disorder of kidney and ureter, unspecified (4) Elevated troponin Current visit: Yes Status: Acute Category: Medical Code(s): R79.89 - Other specified abnormal findings of blood chemistry (5) History of colon cancer Current visit: Yes Status: Acute Category: Medical Code(s): Z85.038 - Personal history of other malignant neoplasm of large intestine (6) Pleural effusion, not elsewhere classified Current visit: Yes Status: Acute Category: Medical Code(s): J90 - Pleural effusion, not elsewhere classified
--- NOTE | 2019-08-23 08:39 | Progress Note ---
Subjective Patient reports: still having pain, flatus Narrative: last BM "about a day ago" he states that he "was better" on Glucerna alone and that advancement of his diet "caused trouble" Exam Vital signs and Labs for Last 24 Hours: Temp Pulse Resp BP Pulse Ox 97.8 F 59 L 16 163/74 H 95 08/23/19 03:40 08/23/19 03:40 08/23/19 03:40 08/23/19 03:42 08/23/19 03:40 Laboratory Results - last 24 hr 08/22/19 11:29: POC Glucose 197 H 08/22/19 16:38: POC Glucose 301 H* 08/22/19 20:38: POC Glucose 231 H 08/23/19 06:41: POC Glucose 166 H I & O for Last 24 hours: Intake & Output 08/20/19 08/21/19 08/22/19 08/23/19 11:59 11:59 11:59 11:59 Intake Total 1849 / 1849 1589 / 1589 1744 / 1744 1732 / 1732 Output Total 1450 / 1450 850 / 850 1650 / 1650 1300 / 1300 Balance 399 / 399 739 / 739 94 / 94 432 / 432 Weight 230 lb 9 oz 232 lb 8 oz 231 lb 9 oz 233 lb 5 oz - Constitutional no acute distress - *Routine Abdominal Exam Present: soft Comments: somewhat more distended Progress Note: A&P (1) Hypoglycemia Status: Acute Current Visit: Yes (2) SBO (small bowel obstruction) Status: Acute Assessment and plan: he continues to pass flatus and has had multiple radiographic studies to show he does not have a complete obstruction. he has had some increased pain with diet advancement limited thickened liquid diet for now he may ultimately benefit from surgical intervention; however, he does not need emergent/urgent surgery continue steroid taper for now due to the complicated nature of his presentation and likely need for intensive Gastroenterology involvement --> he may require transfer to tertiary center if he does not continue to improve Current Visit: Yes (3) Renal insufficiency Status: Acute Current Visit: No (4) Elevated troponin Status: Acute Current Visit: Yes (5) History of colon cancer Status: Acute Current Visit: Yes (6) Pleural effusion, not elsewhere classified Status: Acute Current Visit: Yes (7) Abnormal CT scan, small bowel Status: Acute Assessment and plan: although he does not have a complete obstruction and does not require emergent surgical intervention...the exact etiology remains undetermined (inflammatory...neoplastic...etc.) ? endoscopic intervention (as per GI consultation) may require surgical resection for diagnosis and management (if he does not improve); however, due to his complex/extended presentation it would be most beneficial to pursue this at a tertiary care center Current Visit: Yes (8) Abnormal small bowel x-ray Status: Acute Current Visit: Yes
--- NOTE | 2019-08-23 08:52 | Progress Note ---
Internal Medicine - PN: Subj *Date: 08/23/19 *Time: 08:50 Interval history: tolerating glucerna - passing flatus - present with pt and dr albert who carefully explained options Exam Vital signs and Labs for Last 24 Hours: Temp Pulse Resp BP Pulse Ox 97.9 F 55 L 20 179/79 H 95 08/23/19 08:00 08/23/19 08:00 08/23/19 08:00 08/23/19 08:00 08/23/19 08:00 Laboratory Results - last 24 hr 08/22/19 11:29: POC Glucose 197 H 08/22/19 16:38: POC Glucose 301 H* 08/22/19 20:38: POC Glucose 231 H 08/23/19 06:41: POC Glucose 166 H I & O for Last 24 hours: Intake & Output 08/20/19 08/21/19 08/22/19 08/23/19 11:59 11:59 11:59 11:59 Intake Total 1849 / 1849 1589 / 1589 1744 / 1744 1732 / 1732 Output Total 1450 / 1450 850 / 850 1650 / 1650 1300 / 1300 Balance 399 / 399 739 / 739 94 / 94 432 / 432 Weight 230 lb 9 oz 232 lb 8 oz 231 lb 9 oz 233 lb 5 oz - Constitutional no acute distress - *Routine HEENT Exam Head: Present: normocephalic Eye: Present: EOMI, PERRL ENT: Present: mucous membranes dry - *Routine Neck Exam Present: supple - *Routine Respiratory Exam Absent: respiratory distress - *Routine Cardiovascular Exam Present: RRR, murmur - *Routine Abdominal Exam Present: soft - *Routine Extremities Exam Present: full ROM - *Routine Skin Exam Present: intact - *Routine Neurological Exam Present: alert, CN II-XII intact - Routine Psychiatric Exam Present: normal affect Assessment and Plan (1) Hypoglycemia Current visit: Yes Status: Acute Category: Medical Code(s): E16.2 - Hypoglycemia, unspecified (2) SBO (small bowel obstruction) Current visit: Yes Status: Acute Category: Medical Code(s): K56.609 - Unspecified intestinal obstruction, unspecified as to partial versus complete obstruction (3) Renal insufficiency Current visit: No Status: Acute Category: Medical Code(s): N28.9 - Disorder of kidney and ureter, unspecified (4) Elevated troponin Current visit: Yes Status: Acute Category: Medical Code(s): R79.89 - Other specified abnormal findings of blood chemistry (5) History of colon cancer Current visit: Yes Status: Acute Category: Medical Code(s): Z85.038 - Personal history of other malignant neoplasm of large intestine (6) Pleural effusion, not elsewhere classified Current visit: Yes Status: Acute Category: Medical Code(s): J90 - Pleural effusion, not elsewhere classified (7) Abnormal CT scan, small bowel Current visit: Yes Status: Acute Category: Medical Code(s): R93.3 - Abnormal findings on diagnostic imaging of other parts of digestive tract (8) Abnormal small bowel x-ray Current visit: Yes Status: Acute Category: Medical Code(s): R93.3 - Abnormal findings on diagnostic imaging of other parts of digestive tract
[2019-08-23 09:33] LABS: Albumin Level 2.4 gm/dL (3.4-5.0); Albumin/Globulin Ratio 0.6 (1.1-1.8); Anion Gap 12.6 mEq/L (5-15); Bilirubin,Total 0.5 mg/dL (0.2-1.0); Globulin 4.1 gm/dl (1.3-3.2); Total Protein,Serum 6.5 gm/dL (6.4-8.2)
[2019-08-23 09:45] LABS: Basophils % 0.2 % (0.1-2.0); Eosinophils % 0.1 % (0.1-12.0); Hematocrit 41.7 % (42.0-52.0); Hemoglobin 13.5 g/dL (14.1-18.0); Lymphocytes % 16.3 % (10-50); Mean Corpuscular HGB Conc 32.3 g/dL (31.8-35.4); Mean Corpuscular Volume 91.4 fl (80-94); Mean Platelet Volume 8.7 fl (7.4-10.4); Monocytes % 8.1 % (1.7-9.3); Neutrophils # 9.5 K/mm3 (1.8-7.8); Neutrophils % 75.4 % (37.0-80.0); Platelet Count 247 K/mm3 (142-424); Red Blood Count 4.56 M/mm3 (4.60-6.20); Red Cell Distribution Width 14.4 % (11.5-17.5); White Blood Count 12.6 K/mm3 (4.8-10.8)
--- NOTE | 2019-08-24 09:00 | Progress Note ---
Subjective Patient reports: still having pain, diarrhea Narrative: The patient's family members are asking for transfer to a tertiary care center. Exam Vital signs and Labs for Last 24 Hours: Temp Pulse Resp BP Pulse Ox 98.4 F 62 18 160/98 H 96 08/24/19 07:38 08/24/19 07:38 08/24/19 07:38 08/24/19 07:38 08/24/19 07:38 Laboratory Results - last 24 hr 08/23/19 09:00: WBC 12.6 H, RBC 4.56 L, Hgb 13.5 L, Hct 41.7 L, MCV 91.4, MCH 29.5, MCHC 32.3, RDW 14.4, Plt Count 247, MPV 8.7, Neut % (Auto) 75.4, Lymph % (Auto) 16.3, [place] % (Auto) 8.1, Eos % (Auto) 0.1, Baso % (Auto) 0.2, Neut # (Auto) 9.5 H, Lymph # (Auto) 2.0, [place] # (Auto) 1.0, Eos # (Auto) 0.0, Baso # (Auto) 0.0 08/23/19 09:00: Sodium 138, Potassium 3.6, Chloride 102, Carbon Dioxide 27, Anion Gap 12.6, BUN 27 H, Creatinine 0.99, Estimated Creat Clear 84, Estimated GFR 72, Est GFR ( Amer) 87, Glucose 166 H, Calcium 8.0 L, Total Bilirubin 0.5, AST 16, ALT 25, Alkaline Phosphatase 57, Total Protein 6.5, Albumin 2.4 L, Globulin 4.1 H, Albumin/Globulin Ratio 0.6 L, Lipase 269 08/23/19 10:59: POC Glucose 193 H 08/23/19 15:30: POC Glucose 259 H 08/23/19 20:45: POC Glucose 233 H 08/24/19 05:51: POC Glucose 224 H I & O for Last 24 hours: Intake & Output 08/21/19 08/22/19 08/23/19 08/24/19 11:59 11:59 11:59 11:59 Intake Total 1589 / 1589 1744 / 1744 1732 / 1732 1332 / 1332 Output Total 850 / 850 1650 / 1650 1300 / 1300 Balance 739 / 739 94 / 94 432 / 432 1332 / 1332 Weight 232 lb 8 oz 231 lb 9 oz 233 lb 5 oz 233 lb 14.567 oz - Constitutional no acute distress - *Routine Respiratory Exam Absent: respiratory distress - *Routine Cardiovascular Exam Present: RRR - *Routine Abdominal Exam Present: soft, tenderness Comments: Slightly less distended versus yesterday's exam Progress Note: A&P (1) Hypoglycemia Status: Acute Current Visit: Yes (2) SBO (small bowel obstruction) Status: Acute Current Visit: Yes (3) Renal insufficiency Status: Acute Current Visit: No (4) Elevated troponin Status: Acute Current Visit: Yes (5) History of colon cancer Status: Acute Current Visit: Yes (6) Pleural effusion, not elsewhere classified Status: Acute Current Visit: Yes (7) Abnormal CT scan, small bowel Status: Acute Assessment and plan: Inflammatory, neoplastic, or "scar tissue" all remain a possible etiology. The radiographic evidence shows a somewhat long segment of what appears to be mucosal thickening as opposed to focal "scar tissue". The patient initially improved but has now shown some increased pain over the past 48 hours. He continues to have bowel function. Although surgical resection may be necessary in the near future, he does not have need for emergent intervention. Due to the complicated nature of his presentation to include multiple possible diagnoses...the most reasonable course of action is for ongoing management at tertiary center with full gastroenterology capabilities. Current Visit: Yes (8) Abnormal small bowel x-ray Status: Acute Current Visit: Yes
--- NOTE | 2019-08-24 09:48 | Discharge Summary ---
General - General Admission date:: 08/16/19 Discharge date: 08/24/19 HPI HPI: this wm who was recently admitted at [facility] for sbo and was treated with ng tube and improved over the course of a few days - he was doing better and tolerating diet and at home has had dec po intake with abd pain and loose stool and had diaphoresis this am and dec blood glu - he was seen in the ed -This is an 84-year-old male with a past medical history significant for hypertension, hyperlipidemia, diabetes mellitus, recent hospital admission for adequately managed small bowel obstruction discharged 2 days ago who presents to the emergency department for vomiting and watery diarrhea, increasing fatigue and subjective fever and chills while at home for the last 36 hours. He left the hospital without any difficulty, started developing symptoms again yesterday. He did have some right lower quadrant abdominal pain, but that has resolved. He denies any abdominal pain at this time, no chest pain or shortness of breath. Nothing makes his symptoms better or worse. He has not tried any medications at home for his symptoms.nt initially arrives with hypoglycemia which improved significantly with an amp of D50. Patient has improved glucose, but later drops again, so was given more D50. He will need to remain n.p.o. as of right now. CT scan shows no significant change in the small bowel obstruction. There is evidence of concern for metastatic disease, also right chest pleural effusion. He has no leukocytosis and is technically afebrile, though he does have a temperature of 99.9. He was covered empirically with Zosyn for possible hospital-acquired infection, but does not trigger sepsis at this time, though sepsis protocol was initiated on arrival given concern with elevated temperature and recent hospital stay. I discussed this case with Dr. Og and patient will be admitted for further observation. Hospital Course Hospital Course: 08/22/19 abd x ray IMPRESSION: The remainder of the exam is unchanged. Overall no significant change. Right mid abdominal finding discussed above could be mild partial small bowel obstruction which is stable. This certainly has not progressed and there is no colonic dilatation. Residual contrast in the colon. kub:FINDINGS: On today's KUB there was questionable area of narrowing involving the small bowel in the mid abdominal region on the right which was obscured by the overlying dilated bowel on the previous exam. Patient was brought back to the Radiology Department where a repeat KUB and fluoroscopy was performed. Fluoro time: 55 seconds. There is a persistent area of narrowing within the small bowel in the right mid abdominal region which is once again noted by KUB and under fluoroscopic inspection. This would correspond to the CT abnormality where there is bowel wall thickening. The small bowel is dilated proximal to this region. This is felt to be the source of the smooth partial small bowel obstruction. Cannot determine if this is neoplastic or inflammatory. IMPRESSION: Irregular area of narrowing of the small bowel in the right mid abdominal region proximal to proximal anastomosis causing partial small bowel obstruction. This could be inflammatory or neoplastic. small bowel follow through: IMPRESSION: Findings suggesting a partial and/or resolving mechanical small bowel obstruction at the anastomotic site and view the tenderness to palpation inflammatory changes from local enteritis would appear to be most likely rather than recurrence of tumor but this certainly cannot be excluded. It would probably be helpful to have a follow-up film in the the morning of 18 August to evaluate additional progression of the barium and allow better visualization of the anastomotic site. FINDINGS: There is a small medium-sized right pleural effusion with right basilar atelectatic change. Coronary artery calcifications are present. There has been a prior CABG. No change in the hypodense lesion in the hepatic dome. The pancreas spleen and left kidney have an unremarkable appearance. Left adrenal gland is unremarkable. There is some nodularity of the right adrenal gland unchanged. 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 There is a small umbilical hernia containing fat unchanged. There are dilated loops of small bowel throughout with focal thickening of the small bowel loop in the right upper quadrant as previously described. This is not significantly changed and may be due to neoplasm or focal inflammatory change/inflammatory bowel disease. This is causing partial small bowel obstruction with a transition point at this area. The small-bowel loops are not quite is distended when compared to the previous exam. There has been a prior right hemicolectomy with an intro Kolich anastomosis in the right upper abdomen. Nodular hypodensities are once again noted in the mid abdominal region toward the right consistent with enlarged lymph nodes. No free air is evident.. No acute bony anomaly. IMPRESSION: 1. Moderate to high-grade small bowel obstruction with a transition point in the right mid abdominal region with thickened small bowel which may be due to neoplasm or inflammatory bowel disease. The small bowel loops may be slightly less prominent than when compared to the previous exam. No free air evident. 2. Prior right nephrectomy and right hemicolectomy. 3. Enlarged mesenteric lymph nodes suspicious for metastatic disease. 4. Moderate-sized right pleural effusion. pt request transfer Dr tee accepted pt for transfer, transfer to [facility] Vital signs: Temp Pulse Resp BP Pulse Ox 98.4 F 62 18 160/98 H 96 08/24/19 07:38 08/24/19 07:38 08/24/19 07:38 08/24/19 07:38 08/24/19 07:38 no acute distress, obese - *Routine HEENT Exam Head: Present: normocephalic Eye: Present: PERRL ENT: Present: mucous membranes moist - *Routine Neck Exam Present: full ROM - *Routine Respiratory Exam Present: CTA bilaterally - *Routine Cardiovascular Exam Present: RRR - *Routine Abdominal Exam Present: soft, normoactive bowel sounds, tenderness - *Routine Extremities Exam Present: full ROM - *Routine Skin Exam Present: intact - *Routine Neurological Exam Present: alert, oriented X3 - Routine Psychiatric Exam Present: normal affect Results Labs on day of discharge: Labs from last 24 hours 08/24/19 08/23/19 08/23/19 05:51 20:45 15:30 Sodium Potassium Chloride Carbon Dioxide Anion Gap BUN Creatinine Estimated Creat Clear Estimated GFR Est GFR ( Amer) Glucose POC Glucose 224 H 233 H 259 H Calcium Total Bilirubin AST ALT Alkaline Phosphatase Total Protein Albumin Globulin Albumin/Globulin Ratio Lipase 08/23/19 08/23/19 10:59 09:00 Sodium 138 Potassium 3.6 Chloride 102 Carbon Dioxide 27 Anion Gap 12.6 BUN 27 H Creatinine 0.99 Estimated Creat Clear 84 Estimated GFR 72 Est GFR ( Amer) 87 Glucose 166 H POC Glucose 193 H Calcium 8.0 L Total Bilirubin 0.5 AST 16 ALT 25 Alkaline Phosphatase 57 Total Protein 6.5 Albumin 2.4 L Globulin 4.1 H Albumin/Globulin Ratio 0.6 L Lipase 269 - Additional Comments rounded with kellee all orders per kellee transfer to when bed available DS: Diagnosis - Discharge Diagnosis (1) Hypoglycemia Status: Acute (2) SBO (small bowel obstruction) Status: Acute (3) Renal insufficiency Status: Acute (4) Elevated troponin Status: Acute (5) History of colon cancer Status: Acute (6) Pleural effusion, not elsewhere classified Status: Acute (7) Abnormal CT scan, small bowel Status: Acute (8) Abnormal small bowel x-ray Status: Acute Discharge Plan - Patient Discharge Instructions ACTIVITY: Continue current activity DIET: continue same diet Patient Instructions: Hypoglycemia, DI for Small Bowel Obstruction, Nausea and Vomiting-Adult - Follow up Plan Disposition: Xfer Short-Term Hosp Home Medications: Home Medications Medication Instructions Recorded Confirmed Type aspirin 81 mg tablet,delayed 81 mg PO DAILY 03/17/18 08/16/19 History release Amlodipine Besylate [Amlodipine 10 mg PO HS 08/11/19 08/16/19 History 10mg Tab] Atorvastatin Calcium [Atorvastatin 40 mg PO HS 08/11/19 08/16/19 History 40mg Tab] Desloratadine 5 mg PO DAILY 08/11/19 08/16/19 History Fenofibrate Nanocrystallized 145 mg PO HS 08/11/19 08/16/19 History [Fenofibrate] Furosemide [Furosemide 20mg Tab] 20 mg PO DAILY 08/11/19 08/16/19 History Insulin NPH Hum/Reg Insulin Hm 30 units SQ DAILY 08/11/19 08/16/19 History [Humulin 70/30 Kwikpen] Metoprolol Succinate 100 mg PO DAILY 08/11/19 08/16/19 History lisinopriL [Lisinopril 20mg Tab] 20 mg PO BID 08/11/19 08/16/19 History Cholecalciferol (Vitamin D3) 1,000 unit PO DAILY 08/12/19 08/16/19 History [Vitamin D3 1,000 Unit Cap] Insulin NPH Hum/Reg Insulin Hm 25 units SQ HS 08/12/19 08/16/19 History [Humulin 70/30 Kwikpen] Lansoprazole [Prevacid] 30 mg PO DAILY 08/12/19 08/16/19 History Multivitamin [Daily Multiple 1 each PO DAILY 08/12/19 08/16/19 History Vitamin] Vit B6/Me-Thfolate/Me-B12/Ala 1 each PO DAILY 08/12/19 08/16/19 History [Nufola Capsule] Prescriptions/Medication Reconciliation: Continued aspirin 81 mg tablet,delayed release 81 mg PO DAILY lisinopriL [Lisinopril 20mg Tab] 20 mg PO BID Insulin NPH Hum/Reg Insulin Hm [Humulin 70/30 Kwikpen] 30 units SQ DAILY Furosemide [Furosemide 20mg Tab] 20 mg PO DAILY Fenofibrate Nanocrystallized [Fenofibrate] 145 mg PO HS Desloratadine 5 mg PO DAILY Atorvastatin Calcium [Atorvastatin 40mg Tab] 40 mg PO HS Amlodipine Besylate [Amlodipine 10mg Tab] 10 mg PO HS Lansoprazole [Prevacid] 30 mg PO DAILY Cholecalciferol (Vitamin D3) [Vitamin D3 1,000 Unit Cap] 1,000 unit PO DAILY Metoprolol Succinate 100 mg PO DAILY Multivitamin [Daily Multiple Vitamin] 1 each PO DAILY Vit B6/Me-Thfolate/Me-B12/Ala [Nufola Capsule] 1 each PO DAILY Insulin NPH Hum/Reg Insulin Hm [Humulin 70/30 Kwikpen] 25 units SQ HS - Problem Reconciliation Problems Reviewed?: Yes
== END 2019-08-24 11:40 | disposition short-term general hospital (02) | DRG 638 ==
LOC: ER 07:58 → 2ND 07:58 → OBSVTOIN 10:18 → 2ND 11:27
PROVIDERS: ADMIT Emergency Medicine; ATTEND Emergency Medicine
CPT/HCPCS: 36415; 71010; 71045; 71260; 74000; 74018; 74021; 74022; 74177; 74250; 76000; 80048; 80053; 81001; 82150; 82378; 82962; 83540; 83550; 83605; 83690; 84484; 85025; 87040; 87275; 87276; 87507; 93005; 96365; 96367; 96375; 97162; 97165; 99284; J2543; J3490; Q9967